=== PATIENT | female | born 1945 | race Caucasian/White ===

== ENCOUNTER 2020-06-16 11:28 | Outpatient (CLI) | payer MEDICARE, BC, SELFPAY ==
--- NOTE | ~2020-06-16 | XR_ITS ---
XR cervical spine 4-5V DATE: 06/16/2020 11:58 INDICATION: Neck pain TECHNIQUE: AP, open-mouth, lateral and bilateral oblique views COMPARISON: None FINDINGS: C1 and C2 are normally aligned and the odontoid process is intact. There is straightening of the cervical spine. No fracture or dislocation or locked facet is evident. There is moderate degenerative disc disease at C3-4. There is moderately severe degenerative disc disease at C4-5, with minimal retrolisthesis. Moderately severe degenerative disc disease at C5-6. Moderate degenerative disc disease at C6-7. There is uncovertebral joint spurring, particularly on the left at C3-4, bilaterally at C4-5 and C5-6 there is corresponding mild anterior encroachment upon the left C4, C5, C6 and C7 and right C5 and C 6 neural foramina in particular. No prevertebral soft tissue swelling. Left-sided pacemaker device IMPRESSION: Mild straightening Extensive degenerative changes Reviewed, dictated and finalized at location A. L WORD PROCESSOR
== END 2020-06-16 11:29 | disposition home or self-care (01) ==
PROVIDERS: PCP Family Medicine; Visit Provider Family Medicine
DX: M54.2 Cervicalgia (principal)
CPT/HCPCS: 72050

== ENCOUNTER → 2021-04-09 13:33 | Outpatient (CLI) | payer MEDICARE, BC, SELFPAY ==
--- NOTE | ~2021-04-09 | XR_ITS ---
EXAMINATION: XR knee RT min 4V DATE: 04/09/2021 15:19 INDICATION: Unspecified osteoarthritis, unspecified site. TECHNIQUE: 4 views of right knee including standing views were obtained. COMPARISON: None. FINDINGS: There is varus angulation at the knee. No fracture. There is severe osteoarthritis of media l compartment and mild osteoarthritis of lateral and patellofemoral compartments. There is a small kn ee joint effusion. IMPRESSION: 1. Severe right knee osteoarthritis. 2. Small right knee joint effusion. Reviewed, dictated and finalized at location A.
--- NOTE | ~2021-04-09 | XR_ITS ---
EXAMINATION: XR knee LT min 4V DATE: 04/09/2021 15:19 INDICATION: Unspecified osteoarthritis, unspecified site. TECHNIQUE: 4 views of left knee including standing views were obtained. COMPARISON: Left knee radiographs 10/12/2007 FINDINGS: Bone alignment is normal. No fracture. There is severe osteoarthritis of medial compartment and mild osteoarthritis of lateral and patellofemoral compartments. No knee joint effusion. IMPRESSION: 1. Severe left knee osteoarthritis. Reviewed, dictated and finalized at location A.
== END ==
PROVIDERS: PCP Family Medicine; Visit Provider Family Medicine
DX: M17.0 Bilateral primary osteoarthritis of knee (principal)
CPT/HCPCS: 73564

== ENCOUNTER 2021-06-30 09:07 | Outpatient (CLI) | payer MEDICARE, BC, SELFPAY ==
--- NOTE | ~2021-06-30 | XR_ITS ---
EXAMINATION: XR shoulder LT min 2V DATE: 06/30/2021 09:46 INDICATION: Left shoulder pain. TECHNIQUE: 5 views of left shoulder were obtained. COMPARISON: None. FINDINGS: Bone alignment is normal. No fracture. There is mild osteoarthritis of glenohumeral joint a nd moderate osteoarthritis of acromioclavicular joint. A left chest pacer is noted. IMPRESSION: 1. Polyarticular osteoarthritis. Reviewed, dictated and finalized at location B. E CLERK
== END 2021-06-30 09:08 | disposition home or self-care (01) ==
PROVIDERS: PCP Family Medicine; Visit Provider Family Medicine
DX: M19.012 Primary osteoarthritis, left shoulder (principal)
CPT/HCPCS: 73030

== ENCOUNTER 2021-11-05 01:54 | Day surgery (SDC) | payer MEDICARE, BC, SELFPAY ==
[2021-10-26 13:44] VITALS: BMI 30.9
--- NOTE | 2021-11-05 10:37 | WPDANESEPPF ---
Anes - Initial Pre Proc Eval Procedure: Operation Date: 11/05/21 12:30 Proposed Procedures p Colonoscopy - Vlad Simons MD Date/Time: 11/05/21 10:37 Surgeon: Vlad Simons MD Pre Op Diagnosis: positive cologuard Patient Data Age: 75 Gender: F Height: 1.68 m Weight: 87 kg Allergies Allergy/AdvReac Type Severity Reaction Status Date / Time latex Allergy Unknown Unknown Verified 11/05/21 11:10 lisinopril Allergy Unknown Cough Verified 11/05/21 11:10 mannitol [Reclast] Allergy Unknown Nausea Verified 11/05/21 11:10 Sulfa (Sulfonamide Allergy Unknown Unknown Verified 11/05/21 11:10 Antibiotics) sulfamethoxazole [Septra] Allergy Unknown Skin Verified 11/05/21 11:10 Reaction trimethoprim [Septra] Allergy Unknown Skin Verified 11/05/21 11:10 Reaction water for injection,sterile Allergy Unknown Nausea Verified 11/05/21 11:10 [Reclast] zoledronic acid [Reclast] Allergy Unknown Nausea Verified 11/05/21 11:10 diclofenac AdvReac Intermediate gi upset, Verified 11/05/21 11:10 diarrhea, and intolerance Home Medications Medication Instructions Recorded Confirmed Type aspirin 81 mg tablet,delayed 81 mg PO DAILY 06/14/19 10/26/21 History release hydrochlorothiazide 25 mg tablet 25 mg PO DAILY 06/14/19 10/26/21 History magnesium 250 mg tablet 250 mg PO DAILY 06/14/19 10/26/21 History potassium chloride 10 mEq 20 meq PO DAILY cap 11/25/19 10/26/21 History capsule,extended release losartan 25 mg tablet See Rx Instructions .ROUTE 05/28/21 10/26/21 History .COMPLEX tablet levothyroxine 50 mcg tablet See Rx Instructions .ROUTE 06/24/21 10/26/21 Rx .COMPLEX #90 tablet amlodipine 5 mg tablet See Rx Instructions .ROUTE 08/23/21 10/26/21 Rx .COMPLEX #30 tablet Patient hx anesthesia problems: none Family hx anesthesia problems: none Results Review: All pre-operative results and documents have been reviewed as part of the pre-operative evaluation. [facility] Past Medical History Medical History (Updated 11/05/21 @ 10:38 by Sancho Hassan MD) Cardiac pacemaker Cholecystectomy planned Colonoscopy planned (~08/2014) Essential (primary) hypertension Hypothyroidism (acquired) Obstructive sleep apnea (adult) (pediatric) MARLEN on CPAP Presence of permanent cardiac pacemaker Unspecified atrial fibrillation Upper respiratory infection Surgical History Surgical History (Reviewed 09/14/21 @ 10:41 by Jessica Duckworth [facility]) H/O cardiac radiofrequency ablation H/O: hysterectomy (~1998) Family History Family History Mother Family history of malignant neoplasm Father Diabetes mellitus Hypertension Grandparent Cerebrovascular accident Other Carcinoma of colon Family history of kidney disease Family history of malignant neoplasm of breast in first degree relative Family history of malignant neoplasm of gastrointestinal tract Family history of thyroid disease Social History Social History (Updated 09/14/21 @ 10:41 by Jessica Duckworth CMA) Second hand tobacco smoke exposure: No Alcohol intake: current Alcohol use details: 1-2 drinks every few months Living arrangements: with family Spiritual care concerns: No Anes - Eval Final PreProcedure Day of Procedure 11/05/21 10:37 Patient weight: obese Heart: regular rate and rhythm Lungs: clear to auscultation and normal air movement Airway: Mallampati scale class II Neurological: alert and oriented Last oral intake: >/= 8 hours ASA classification: III Emergent: no Anesthetic plan: proceed Anesthesia type and monitoring: general GIVS Results Review: All pre-operative results and documents have been reviewed as part of the pre-operative evaluation. Informed Consent: The patient's anesthetic plan and its attendant risks and benefits were discussed with the patient/family/POA. Questions were solicited and answers provided to the satisfaction of t
[2021-11-05 11:11] VITALS: BP 156/76; PULSE 83; RESP 18; TEMP 36.2; O2SAT 100
[2021-11-05] MEDS: LACTATED RINGERS 1,000 ML 150 ML IV CONT (11:18)
--- NOTE | 2021-11-05 11:42 | WPDGICN ---
Assessment and Plan Assessment and plan (1) Positive colorectal cancer screening using Cologuard test: Code(s): R19.5 - Other fecal abnormalities Status: Acute Assessment and Plan: Patient with positive Cologuard test. For this reason screening colonoscopy will be performed. This report follows separately. GI Consult Note Consult date/time: 11/05/21 11:42 HPI: Esther Goins is a 75 year old female Presents for screening colonoscopy. Patient recently found to have positive Cologuard test. Her current weight appetite bowel movements are normal. She denies abdominal pain. She has had no bleeding. Family history is noncontributory. Patient's last colonoscopy 2014 was unremarkable. She presents today for neoplasia screening. Review of Systems Review of Systems: All systems reviewed & are unremarkable except as noted in HPI and below PMFSH Past Medical History Medical History (Updated 11/05/21 @ 11:43 by Vlad Simons MD) Cardiac pacemaker Cholecystectomy planned Colonoscopy planned (~08/2014) Essential (primary) hypertension Hypothyroidism (acquired) Obstructive sleep apnea (adult) (pediatric) MARLEN on CPAP Presence of permanent cardiac pacemaker Unspecified atrial fibrillation Upper respiratory infection Surgical History Surgical History H/O cardiac radiofrequency ablation H/O: hysterectomy (~1998) Family History Family History Mother Family history of malignant neoplasm Father Diabetes mellitus Hypertension Grandparent Cerebrovascular accident Other Carcinoma of colon Family history of kidney disease Family history of malignant neoplasm of breast in first degree relative Family history of malignant neoplasm of gastrointestinal tract Family history of thyroid disease Social History Social History (Updated 09/14/21 @ 10:41 by Jessica Duckworth CMA) Second hand tobacco smoke exposure: No Alcohol intake: current Alcohol use details: 1-2 drinks every few months Living arrangements: with family Spiritual care concerns: No Meds Home Medications and Allergies Home Medications Medication Instructions Recorded Confirmed Type aspirin 81 mg tablet,delayed 81 mg PO DAILY 06/14/19 10/26/21 History release hydrochlorothiazide 25 mg tablet 25 mg PO DAILY 06/14/19 10/26/21 History magnesium 250 mg tablet 250 mg PO DAILY 06/14/19 10/26/21 History potassium chloride 10 mEq 20 meq PO DAILY cap 11/25/19 10/26/21 History capsule,extended release losartan 25 mg tablet See Rx Instructions .ROUTE 05/28/21 10/26/21 History .COMPLEX tablet levothyroxine 50 mcg tablet See Rx Instructions .ROUTE 06/24/21 10/26/21 Rx .COMPLEX #90 tablet amlodipine 5 mg tablet See Rx Instructions .ROUTE 08/23/21 10/26/21 Rx .COMPLEX #30 tablet Allergies Allergy/AdvReac Type Severity Reaction Status Date / Time latex Allergy Unknown Unknown Verified 11/05/21 11:10 lisinopril Allergy Unknown Cough Verified 11/05/21 11:10 mannitol [Reclast] Allergy Unknown Nausea Verified 11/05/21 11:10 Sulfa (Sulfonamide Allergy Unknown Unknown Verified 11/05/21 11:10 Antibiotics) sulfamethoxazole [Septra] Allergy Unknown Skin Verified 11/05/21 11:10 Reaction trimethoprim [Septra] Allergy Unknown Skin Verified 11/05/21 11:10 Reaction water for injection,sterile Allergy Unknown Nausea Verified 11/05/21 11:10 [Reclast] zoledronic acid [Reclast] Allergy Unknown Nausea Verified 11/05/21 11:10 diclofenac AdvReac Intermediate gi upset, Verified 11/05/21 11:10 diarrhea, and intolerance Vital Signs Vital Signs - 24 hr 11/05/21 11:11 Temperature 97.1 F L Pulse Rate 83 Respiratory Rate 18 Blood Pressure 156/76 H Pulse Oximetry 100 Exam Narrative: Physical exam reveals patient to be alert. Vital signs stable. HEENT exam is unr
[2021-11-05 12:44] VITALS: BP 125/61; PULSE 68; RESP 22; O2SAT 100
[2021-11-05 12:54] VITALS: BP 137/61; PULSE 70; RESP 20; O2SAT 100
[2021-11-05 13:04] VITALS: BP 145/61; PULSE 60; RESP 20; O2SAT 100
== END 2021-11-05 13:15 | disposition home or self-care (01) ==
PROVIDERS: PCP Family Medicine; Visit Provider Internal Medicine Gastroenterology
PROC: 0DJD8ZZ Inspection of Lower Intestinal Tract, Via Natural or Artificial Opening Endoscopic (ICD-10-PCS; CPT 45378; principal; 2021-11-05 12:30)
DX: R19.5 Other fecal abnormalities (principal); K64.8 Other hemorrhoids; K57.30 Diverticulosis of large intestine without perforation or abscess without bleeding; I10 Essential (primary) hypertension; E03.9 Hypothyroidism, unspecified; I48.91 Unspecified atrial fibrillation; G47.33 Obstructive sleep apnea (adult) (pediatric); Z95.0 Presence of cardiac pacemaker; Z79.82 Long term (current) use of aspirin; E66.9 Obesity, unspecified; Z68.30 Body mass index [BMI] 30.0-30.9, adult
CPT/HCPCS: 45378; J2001; J2704; J7120

== ENCOUNTER → 2021-12-09 12:24 | Outpatient (CLI) | payer MEDICARE, BC, SELFPAY ==
--- NOTE | ~2021-12-09 | DEXA_ITS ---
Bone Density Report Name: YAZ CESPEDES Age: 76 Sex: Female Ethnicity: White Date of : 1945 Indication: hyperparathyroidism; height loss; prior fracture; hysterectomy; postmenopausal Referring Provider: EDWIN BADILLO Study: Bone densitometry was performed. Exam Date: December 09, 2021 Accession number: [id number] Bone Density: Region BMD T-score Z-score Classification AP Spine (L1-L4) 0.795 -2.3 0.2 Osteopenia Femoral Neck (Left) 0.633 -1.9 0.2 Osteopenia Total Hip (Left) 0.789 -1.3 0.6 Osteopenia Femoral Neck (Right) 0.650 -1.8 0.3 Osteopenia Total Hip (Right) 0.757 -1.5 0.3 Osteopenia Total Hip Mean 0.773 -1.4 0.5 Osteopenia World Health Organization criteria for BMD impression classify patients as: Normal (T-score at or above -1.0), Osteopenia (T-score between -1.0 and -2.5), or Osteoporosis (T-score at or below -2.5). 10-year Fracture Risk(1): Major Osteoporotic Fracture 19% Hip Fracture 4.3% Reported Risk Factors: [place] (), Neck BMD=0.633, BMI=33.3, previous fracture (1) FRAX(R) Version 3.08. Fracture probability calculated for an untreated patient. Fracture probability may be lower if the patient has received treatment. Clinical Information Provided by Patient: Has had a low trauma fracture Has used the following medications: Vitamin D, Calcium Has the following medical conditions: Hyperparathyroidism, Hysterectomy Patient maximum height was 66 Menopause Age: 50 No regular weight bearing exercise Does not regularly consume dairy products Drinks caffeinated beverages Onset of menses at age 16 Number of children 2 Impression: The patient has low bone mass, based on the Total Spine T-score. The patient has an estimated ten-year risk of hip fracture of 4.3% and an estimated ten-year risk of major fracture of 19%, based on the WHO FRAX algorithm. The patient has risk factors, including: previous fracture. Discussion: BONE DENSITY IS LOW AT ONE OR MORE SKELETAL SITES. THE PATIENT'S BMD AND CLINICAL RISK FACTORS CONTRIBUTE TO THIS PATIENT'S INCREASED RISK OF FRACTURE. This patient's lowest T-score is low at one or more skeletal sites. It meets the World Health Organization's (WHO) criteria for ?low bone mass? (T-score between -1.0 and -2.5). The patient's 10-year risk of hip fracture as calculated by FRAX exceeds the threshold where pharmacological therapy is recommended by the National Osteoporosis Foundation (NOF). However, all treatment decisions require clinical judgment and consideration of individual patient factors, including patient preferences, comorbidities, previous drug use, risk factors not captured in the FRAX model (e.g., frailty, falls, vitamin D deficiency, increased bone turnover, interval significant decline in bone density) and possible under or ove
== END ==
PROVIDERS: PCP Family Medicine; Visit Provider Family Medicine
DX: Z78.0 Asymptomatic menopausal state (principal); M85.88 Other specified disorders of bone density and structure, other site; M85.852 Other specified disorders of bone density and structure, left thigh; M85.851 Other specified disorders of bone density and structure, right thigh
CPT/HCPCS: 77080

== ENCOUNTER 2021-12-27 15:09 | Outpatient (CLI) | payer MEDICARE, BC, SELFPAY ==
--- NOTE | ~2021-12-27 | US_ITS ---
EXAMINATION:US venous doppler LE LT INDICATION:Left leg pain and swelling TECHNIQUE: Multiple grayscale, color flow and Doppler images of the left lower extremity deep venous systems were obtained and reviewed. COMPARISON:Ultrasound dated 06/04/2011 FINDINGS: The common femoral, superficial femoral and popliteal veins demonstrate normal respiratory variation, augmentation and compressibility. Color flow is also seen within the peroneal, greater sa phenous and profunda veins. There is deep venous thrombosis of the distal aspect of the posterior tib ial vein. IMPRESSION: 1: Deep venous thrombosis in the distal aspect of the left posterior tibial vein. Patient will be held in radiology department until the referring physician is contacted by our office staff. Reviewed, dictated and finalized at location A. IMPRESSION: 1: Deep venous thrombosis in the distal aspect of the left posterior tibial vei n. Patient will be held in radiology department until the referring physician is c ontacted by our office staff.
== END 2021-12-27 15:10 | disposition home or self-care (01) ==
PROVIDERS: PCP Family Medicine; Visit Provider Family Medicine
DX: M79.605 Pain in left leg (principal); I82.442 Acute embolism and thrombosis of left tibial vein
CPT/HCPCS: 93971

== ENCOUNTER 2022-09-09 10:11 | Outpatient (CLI) | payer MEDICARE, BC, SELFPAY ==
--- NOTE | ~2022-09-09 | US_ITS ---
EXAMINATION: US venous doppler [facility] DATE: 09/09/2022 11:08 INDICATION: Left leg pain TECHNIQUE: Grayscale ultrasound images without and with compression and Doppler ultrasound images of the left lower extremity veins were obtained. COMPARISON: None. FINDINGS: The visualized portions of left common femoral vein, profunda (deep) femoral vein, femoral vein, popl iteal vein, peroneal veins, posterior tibial veins, gastrocnemius vein and greater saphenous vein out flow are patent. IMPRESSION: 1. No deep venous thrombosis in the left lower limb. Reviewed, dictated and finalized at location A. RVISOR STAVE FINISHING
== END 2022-09-09 10:12 | disposition home or self-care (01) ==
PROVIDERS: PCP Emergency Medicine; Visit Provider Emergency Medicine
DX: M79.605 Pain in left leg (principal)
CPT/HCPCS: 93971

== ENCOUNTER → 2022-10-25 10:40 | Outpatient (CLI) | payer MEDICARE, BC, SELFPAY ==
--- NOTE | ~2022-10-25 | US_ITS ---
Thyroid ultrasound. Clinical History: Nontoxic thyroid nodule Findings: Real-time sonography of the thyroid gland was performed. The right lobe measures 5.3 x 1.8 1.2 cm. The left lobe measures 8.2 x 4.3 x 6.4 cm. Questionable subtle solid nodule the right midpole measuring 1.2 x 1.0 x 0.8 cm. There is suggestion of a large solid nodule at the left midpole measuring 3.4 x 4.7 x 2.9 cm. Impression: Marked asymmetric enlargement of the left thyroid lobe, suggestive of multinodular goiter. Probable l arge 4.7 cm solid nodule at the left midpole. FNA advised for tissue analysis. Additional smaller hypoechoic nodule in the right thyroid lobe. Annual follow-up for this nodule is a dvised. Reviewed, dictated and finalized at location M. Impression: Marked asymmetric enlargement of the left thyroid lobe, suggestive of multinodu lar goiter. Probable large 4.7 cm solid nodule at the left midpole. FNA advised for tissue analysis. Additional smaller hypoechoic nodule in the right thyroid lobe. Annual follow-u p for this nodule is advised.
== END ==
PROVIDERS: PCP Emergency Medicine; Visit Provider Emergency Medicine
DX: E04.1 Nontoxic single thyroid nodule (principal)
CPT/HCPCS: 76536

== ENCOUNTER 2023-05-18 13:56 | Emergency (ER) | payer MEDICARE, BC, SELFPAY ==
[2023-05-18] VITALS (10 sets, daily range): BP systolic 129–163; BP diastolic 52–87; PULSE 69; RESP 14–16; TEMP 36.6; O2SAT 95–100
--- NOTE | ~2023-05-18 | CT_ITS ---
EXAMINATION: CT BRAIN W/O DATE: 05/18/2023 16:19 INDICATION: Head injury TECHNIQUE: Computed tomography (CT) of the head was performed without intravenous contrast. The dose- length product was 605.33 mGy-cm. Automated exposure control and iterative reconstruction technique w ere employed. COMPARISON: No prior studies for comparison. FINDINGS: Normal brain parenchymal volume for age. Normal tuttle-white differentiation. No acute intrac ranial hemorrhage, infarction, mass or mass effect. There is intracranial atherosclerosis. No ventriculomegaly or midline shift. Midline sagittal images demonstrate a normal corpus callosum, c raniovertebral junction and sella turcica. Basilar cisterns are patent. Paranasal sinuses and mastoids are pneumatized. No depressed skull fractures. IMPRESSION: 1. No acute intracranial abnormality. Reviewed, dictated and finalized at location A.
--- NOTE | ~2023-05-18 | CT_ITS ---
EXAMINATION: CT thoracic lumbar wo con DATE: 05/18/2023 16:19 INDICATION: Back pain. Fall. TECHNIQUE: Computed tomography (CT) of the thoracic and lumbar spine was performed without intravenou s contrast. Automated exposure control and iterative reconstruction technique were employed. The dose -length product was 1607.28 mGy-cm. COMPARISON: None FINDINGS: CT THORACIC SPINE: There is a left chest wall pacer with leads in the right atrium and right ventricl e. There are changes of cholecystectomy. There is mild chronic lung disease. There is 9 degrees dextr ocurvature of thoracic spine. Vertebral body heights are normal. Intervertebral disc heights are norm al. There are bridging endplate osteophytes from T4 to T11, consistent with diffuse idiopathic skelet al hyperostosis (DISH). There is multilevel mild to moderate facet joint osteoarthritis. There is mil d right neural foraminal stenosis at T2-T3, T3-T4, T5-T6, and T6-T7. No central canal stenosis. CT LUMBAR SPINE: There is 18 mm mass in right adrenal gland measuring low-attenuation, consistent wit h an adenoma. Bone alignment is normal. Vertebral body heights are normal. There is mildly decreased disc height at L3-L4, L4-L5, and L5-S1. The following disc levels are specifically discussed: L1-L2: The disc does not extend beyond the endplate margin. There is mild bilateral facet joint osteo arthritis. There is no neural foraminal stenosis. There is no central canal stenosis. L2-L3: The disc does not extend beyond the endplate margin. There is mild bilateral facet joint osteo arthritis. There is no neural foraminal stenosis. There is no central canal stenosis. L3-L4: The disc is bulging. There is severe bilateral facet joint osteoarthritis. There is mild bilat eral neural foraminal stenosis. There is mild central canal stenosis. L4-L5: The disc is bulging. There is severe bilateral facet joint osteoarthritis. There is mild bilat eral neural foraminal stenosis. There is mild central canal stenosis. L5-S1: The disc is bulging. There is severe bilateral facet joint osteoarthritis. There is mild bilat eral neural foraminal stenosis. There is mild central canal stenosis. IMPRESSION: 1. No fracture. 2. Mild thoracic and lumbar spondylosis. 3. Thoracic DISH. Reviewed, dictated and finalized at location A.
--- NOTE | ~2023-05-18 | CT_ITS ---
EXAMINATION: CT cervical spine wo con DATE: 05/18/2023 16:19 INDICATION: Neck pain. Fall. TECHNIQUE: Computed tomography (CT) of the cervical spine was performed without intravenous contrast. Automated exposure control and iterative reconstruction technique were employed. The dose-length pro duct was 348.15 mGy-cm. COMPARISON: None FINDINGS: There is 2 mm anterolisthesis of C3 on C4. Vertebral body heights are normal. There is aquiles rely decreased disc height from C3-C4 through C6-C7. C1 ring is ununited posteriorly, a normal varian t. The following disc levels are specifically discussed: C2-C3: There is mild right uncovertebral joint osteoarthritis. There is moderate bilateral facet join t osteoarthritis. There is no neural foraminal stenosis. There is no central canal stenosis. C3-C4: There is mild right uncovertebral joint osteoarthritis. There is ankylosis of left uncovertebr al joint with moderate hypertrophy. There is severe right facet joint osteoarthritis. There is ankylo sis of left facet joint with severe hypertrophy. There is mild left neural foraminal stenosis. There is mild central canal stenosis. C4-C5: There is severe bilateral uncovertebral joint osteoarthritis. There is mild bilateral facet julinaa int osteoarthritis. There is mild bilateral neural foraminal stenosis. There is mild central canal st enosis. C5-C6: There is severe bilateral uncovertebral joint osteoarthritis. There is mild left facet joint o steoarthritis. There is mild bilateral neural foraminal stenosis. There is mild central canal stenosi s. C6-C7: There is mild bilateral uncovertebral joint osteoarthritis. There is no facet joint osteoarthr itis. There is mild left neural foraminal stenosis. There is mild central canal stenosis. C7-T1: There is no uncovertebral joint osteoarthritis. There is severe right and moderate left facet joint osteoarthritis. There is mild bilateral neural foraminal stenosis. There is no central canal st enosis. IMPRESSION: 1. No fracture. 2. Severe cervical spondylosis. Reviewed, dictated and finalized at location A.
--- NOTE | 2023-05-18 15:53 | PC.NURSE ---
EDP at bedside to assess pt.
--- NOTE | 2023-05-18 16:15 | PC.NURSE ---
Patient off unit to radiology.
--- NOTE | 2023-05-18 16:15 | ED.FALL ---
HPI - Fall General Chief Complaint: Fall Stated Complaint: fall, struck head Time Seen by Provider: 05/18/23 15:42 Source: patient, EMS and RN notes reviewed Mode of arrival: ambulatory Limitations: no limitations History of Present Illness HPI Narrative: This is a 77 year old female who presents for evaluation of neck pain, back pain s/p fall. Patient states just prior to arrival she was trying to catch her who was fall. This caused her to fall backwards down steps onto concrete. She reports she feel flat on her back and she also hit her head. She denies headache or LOC. She reports neck stiffness and lower back pain. She has bruising to her left flank from this fall. She states initially she has shortness of breath but this has improved. She takes aspirin 81 mg along with other medications. Related Data Home Medications Medication Instructions Recorded Confirmed hydrochlorothiazide 25 mg tablet 25 mg PO DAILY 06/14/19 04/26/23 magnesium 250 mg tablet 250 mg PO DAILY 06/14/19 04/26/23 potassium chloride 10 mEq 20 meq PO DAILY 11/25/19 04/26/23 capsule,extended release ascorbic acid (vitamin C) 1,000 mg 1 g PO DAILY 02/10/22 04/26/23 capsule cholecalciferol (vitamin D3) 25 25 mcg PO DAILY 02/10/22 04/26/23 mcg/drop (1,000 unit/drop) oral drops losartan 50 mg tablet 50 mg PO BID 03/21/22 04/26/23 Allergies Allergy/AdvReac Type Severity Reaction Status Date / Time latex Allergy Unknown Unknown Verified 04/26/23 09:15 lisinopril Allergy Unknown Cough Verified 04/26/23 09:15 mannitol [Reclast] Allergy Unknown Nausea Verified 04/26/23 09:15 Sulfa (Sulfonamide Allergy Unknown Unknown Verified 04/26/23 09:15 Antibiotics) sulfamethoxazole [Septra] Allergy Unknown Skin Verified 04/26/23 09:15 Reaction trimethoprim [Septra] Allergy Unknown Skin Verified 04/26/23 09:15 Reaction water for injection,sterile Allergy Unknown Nausea Verified 04/26/23 09:15 [Reclast] zoledronic acid [Reclast] Allergy Unknown Nausea Verified 04/26/23 09:15 diclofenac AdvReac Intermediate gi upset, Verified 04/26/23 09:15 diarrhea, and intolerance Review of Systems Constitutional: Constitutional: Denies weakness Cardiovascular: Cardiovascular: Denies syncope, Denies rapid heart rate, Denies irregular heart rhythm, Denies leg edema and Denies dyspnea Respiratory: Respiratory: Denies chest congestion, Denies hemoptysis, Denies excessive phlegm production and Reports dyspnea Gastrointestinal: Gastrointestinal: Denies abdominal pain, Denies hematochezia, Denies diarrhea and Denies vomiting Genitourinary: Genitourinary: Denies hematuria, Denies dysuria and Reports flank pain Musculoskeletal: Musculoskeletal: Reports back pain, Denies joint swelling, Denies loss of height and Denies muscle weakness Neurologic: Denies syncope, Denies focal weakness and Denies weakness PMFSH Past Medical History Medical History Cardiac pacemaker Cholecystectomy planned Colonoscopy planned (~08/2014) Essential (primary) hypertension Hypothyroidism (acquired) Obstructive sleep apnea (adult) (pediatric) MARLEN on CPAP Presence of permanent cardiac pacemaker Unspecified atrial fibrillation Upper respiratory infection Surgical History Surgical History H/O cardiac radiofrequency ablation H/O partial thyroidectomy H/O: hysterectomy (~1998) Family History Family History Mother Family history of malignant neoplasm Father Diabetes mellitus Hypertension Grandparent Cerebrovascular accident Other Carcinoma of colon Family history of kidney disease Family history of malignant neoplasm of breast in first degree relative Family history of malignant neoplasm of gastrointestinal tract Family history of thyroid disease Social History Social Hi
[2023-05-18 16:45] LABS: Basophils Percent Auto 0.3 % (0.2-1.2); Eosinophils Percent Auto 0.1 % (0-4.4); Hematocrit 41.8 % (37.0-47.0); Hemoglobin 13.9 g/dL (12.0-15.0); Immature Granulocyte Absolute 0.08 K/mm3 (0.00-0.031); Immature Granulocyte Percent A 0.6 % (0-0.5); Lymphocytes Absolute Auto 0.76 K/mm3 (0.9-3.2); Lymphocytes Percent Auto 5.6 % (18.3-44.2); Mean Corpuscular HGB Conc 33.3 g/dl (32-36); Mean Corpuscular Hemoglobin 31.2 pg (26-34); Mean Corpuscular Volume 93.9 fl (80-100); Monocytes Absolute Auto 1.3 K/mm3 (0.1-0.6); Monocytes Percent Auto 9.3 % (2.6-8.5); Neutrophils Absolute Auto 11.4 K/mm3 (1.3-6.7); Neutrophils Percent Auto 84.1 % (45.5-73.1); Platelet Count Result 244 k/mm3 (150-375); Red Blood Count 4.45 M/mm3 (4.2-5.4); Red Cell Distribution Width 13.2 % (11.5-14.5); White Blood Count 13.6 K/mm3 (4.5-10.0)
[2023-05-18 16:56] LABS: Alanine Aminotransferase 27 U/L (6-35); Albumin Level 4.4 g/dL (3.5-5.1); Alkaline Phosphatase 114 U/L (38-126); Anion Gap 5 mmol/L (8-16); Aspartate Amino Transferase 33 U/L (14-36); Bilirubin,Total 0.5 mg/dL (0.2-1.3); Blood Urea Nitrogen 26 mg/dL (7-17); Calcium 9.8 mg/dL (8.4-10.2); Carbon Dioxide 27 mmol/L (22-30); Chloride 104 mmol/L (98-107); Estimated CRCL calculation 47 ml/min; Estimated Glomerular Filt Rate 54; Glucose 102 mg/dL (65-110); Potassium 3.6 mmol/L (3.4-5.0); Sodium 136 mmol/L (137-145)
[2023-05-18 17:01] LABS: Partial Thromboplastin Time 23.5 SECONDS (22.3-36.8); Prothrombin Time 13.2 Seconds (11.1-14.7)
== END 2023-05-18 17:39 | disposition home or self-care (01) ==
PROVIDERS: Emergency Provider General Practice
DX: S09.90XA Unspecified injury of head, initial encounter (principal); S30.0XXA Contusion of lower back and pelvis, initial encounter; S30.1XXA Contusion of abdominal wall, initial encounter; I10 Essential (primary) hypertension; I48.91 Unspecified atrial fibrillation; E89.0 Postprocedural hypothyroidism; G47.33 Obstructive sleep apnea (adult) (pediatric); Z79.82 Long term (current) use of aspirin; Z95.0 Presence of cardiac pacemaker; Z90.710 Acquired absence of both cervix and uterus; M47.812 Spondylosis without myelopathy or radiculopathy, cervical region; M47.816 Spondylosis without myelopathy or radiculopathy, lumbar region; M47.814 Spondylosis without myelopathy or radiculopathy, thoracic region; M48.14 Ankylosing hyperostosis [Forestier], thoracic region; W10.9XXA Fall (on) (from) unspecified stairs and steps, initial encounter
CPT/HCPCS: 36415; 70450; 72125; 72128; 72131; 80053; 85025; 85610; 85730; 99284

== ENCOUNTER 2023-06-26 11:46 | Outpatient (NON) | payer MEDICARE, BC, SELFPAY ==
[2023-06-26 19:34] LABS: Appearance Urine Clear (Clear); Bacteria Urine None Seen /hpf; Bilirubin Urine Negative (Negative); Blood Urine Negative (Negative); Color Urine Yellow (Yellow); Glucose Urine UA Negative (Negative); Ketones Urine Negative (Negative); Leukocyte Esterase Ur 2+ LEU/UL (Negative); Nitrate Urine Negative (Negative); Non Pathogenic Casts 0-2; Protein Urine Negative (Negative); RBC Urine 0-2 /hpf (0-2); Specific Grav Ur 1.021 (1.001-1.035); Squamous Epithelial Cell Urine Occasional /hpf (Few); Urobilinogen Urine 0.2 mg/dL (<2.0); WBC Urine 51-100 /hpf
[2023-06-26 19:42] LABS: Add Urine Microscopic? YES
== END 2023-06-26 11:47 | disposition home or self-care (01) ==
PROVIDERS: PCP Emergency Medicine; Visit Provider Emergency Medicine
DX: R30.0 Dysuria (principal)
CPT/HCPCS: 81001; 87077; 87086; 87186

== ENCOUNTER 2023-07-14 12:36 | Outpatient (NON) | payer MEDICARE, BC, SELFPAY ==
[2023-07-14 19:37] LABS: Appearance Urine Clear (Clear); Bacteria Urine None Seen /hpf; Bilirubin Urine Negative (Negative); Blood Urine Negative (Negative); Color Urine Yellow (Yellow); Glucose Urine UA Negative (Negative); Ketones Urine Negative (Negative); Leukocyte Esterase Ur Trace LEU/UL (Negative); Nitrate Urine Negative (Negative); Non Pathogenic Casts 0-2; Protein Urine Negative (Negative); RBC Urine 0-2 /hpf (0-2); Specific Grav Ur 1.011 (1.001-1.035); Squamous Epithelial Cell Urine None seen /hpf (Few); Urobilinogen Urine 0.2 mg/dL (<2.0); WBC Urine 0-5 /hpf; pH Urine 6.5 (5.0-9.0)
[2023-07-14 19:52] LABS: Add Urine Microscopic? YES
== END 2023-07-14 12:37 | disposition home or self-care (01) ==
LOC: ANHGOSHLAB 12:38
PROVIDERS: PCP Emergency Medicine; Visit Provider Emergency Medicine
DX: N39.0 Urinary tract infection, site not specified (principal)
CPT/HCPCS: 81001

== ENCOUNTER 2025-03-30 12:42 | Emergency (ER) | payer MEDICARE, BC, SELFPAY ==
--- OUTSIDE RECORDS SUMMARY | 2025-03-30 12:44 | XMS_ITS | Encounter Summary ---
Author Organization [facility] Address [address] [place] [address] Phone Care Team Providers Care Electrical Linesworker Name Role Phone Ros Gilliam MD Primary Care Provider [phone] Ros Gilliam MD Primary Care Provider [phone] Unknown, Notinfile Primary Care Provider Unavail able Ros Gilliam MD Primary Care Provider [phone] Unknown, Notinfile Primary Care Provider Unavail able Ros Gilliam MD Primary Care Provider [phone] Carl Kahn MD Primary Care Provider [phone] Juancho Contreras MD Primary Care Provider [phone] Rashmi Li MD Primary Care Provider + Encounter Details Date Type Department Care Team (Late st Contact Info) Description 10/24/2013 Orders Only [facility] Provider, MD Enmanuel [address] [place] [address] Social History Tobacco Use Types Packs/Day Years Used Date Smoking Tobacco: Never Assessed Comments Unknown Sex and Gender Information Value Date Recorded Sex Assigned at Not on file 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 us Historical Provider [facility] Final Result documented in this encounter Visit Diagnoses Not on filedocumented in this encounter Care Teams Electrical Linesworker Relationship Specialty Start Date End Date Ros Gilliam MD [address] [place] [address] PCP - General 10/20/14 01/12/17 Ros Gilliam MD [address] [place] [address] PCP - General 01/13/17 01/13/17 Unknown, Notinfile PCP - General 01/14/17 01/22/17 Ros Gilliam MD [address] [place] [address] PCP - General 01/23/17 03/08/17 Unknown, Notinfile PCP - General 03/09/17 07/12/17 Ros Gilliam MD [address] [place] [address] PCP - General 07/13/17 07/25/22 Carl Kahn MD PCP - General Family Medicine 07/26/22 06/04/24 [place] [address] PCP - General Family Medicine 06/05/24 09/23/24 Rashmi Li MD [address] [place] [address] [address] [place] [address] PCP - General Family Medicine 09/24/24 documented as of this encounter
--- OUTSIDE RECORDS SUMMARY | 2025-03-30 12:44 | XMS_ITS | Encounter Summary ---
Author Organization [facility] Address [address] [place] [address] Phone Care Team Providers Care Custom Miller Name Role Phone Ros Gilliam MD Primary Care Provider [phone] Ros Gilliam MD Primary Care Provider [phone] Unknown, Notinfile Primary Care Provider Unavail able Ros Gilliam MD Primary Care Provider [phone] Unknown, Notinfile Primary Care Provider Unavail able Ros Gilliam MD Primary Care Provider Carl Kahn MD Primary Care Provider [phone] Juancho Contreras MD Primary Care Provider [phone] Rashmi Li MD Primary Care Provider + Encounter Details Date Type Department Care Team (Late st Contact Info) Description 09/19/2012 Orders Only [facility] Provider, MD Enmanuel [address] [place] [address] Social History Tobacco Use Types Packs/Day Years Used Date Smoking Tobacco: Never Assessed Comments Unknown Sex and Gender Information Value Date Recorded Sex Assigned at Not on file 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 us Historical Provider [facility] Final Result documented in this encounter Visit Diagnoses Not on filedocumented in this encounter Care Teams Custom Miller Relationship Specialty Start Date End Date Ros Gilliam MD [address] [place] [address] PCP - General 10/20/14 01/12/17 Ros Gilliam MD [address] [place] [address] PCP - General 01/13/17 01/13/17 Unknown, Notinfile PCP - General 01/14/17 01/22/17 Ros Gilliam MD [address] [place] [address] PCP - General 01/23/17 03/08/17 Unknown, Notinfile PCP - General 03/09/17 07/12/17 Ros Gilliam MD [address] [place] [address] PCP - General 07/13/17 07/25/22 Carl Kahn MD PCP - General Family Medicine 07/26/22 06/04/24 [place] [address] PCP - General Family Medicine 06/05/24 09/23/24 Rashmi Li MD [address] [place] [address] [address] [place] [address] PCP - General Family Medicine 09/24/24 documented as of this encounter
--- OUTSIDE RECORDS SUMMARY | 2025-03-30 12:44 | XMS_ITS | Encounter Summary ---
Author Organization [facility] Address [address] [place] [address] Phone Care Team Providers Care Plater Barrel Name Role Phone Ros Gilliam MD Primary Care Provider [phone] Ros Gilliam MD Primary Care Provider [phone] Unknown, Notinfile Primary Care Provider Unavail able Ros Gilliam MD Primary Care Provider [phone] Unknown, Notinfile Primary Care Provider Unavail able Ros Gilliam MD Primary Care Provider [phone] Carl Kahn MD Primary Care Provider [phone] Juancho Contreras MD Primary Care Provider [phone] Rashmi Li MD Primary Care Provider + Encounter Details Date Type Department Care Team (Late st Contact Info) Description 12/03/2015 Orders Only [facility] Provider, MD Enmanuel [address] [place] [address] Social History Tobacco Use Types Packs/Day Years Used Date Smoking Tobacco: Never Alcohol Use Standard Drinks/Week Comments Yes 0 (1 standard drink = 0.6 oz pur e alcohol) Comments Unknown Sex and Gender Information Value Date Recorded Sex Assigned at Not on file 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 us Historical Provider [facility] Final Result documented in this encounter Visit Diagnoses Not on filedocumented in this encounter Care Teams Plater Barrel Relationship Specialty Start Date End Date Ros Gilliam MD [address] [place] [address] PCP - General 10/20/14 01/12/17 Ros Gilliam MD [address] [place] [address] PCP - General 01/13/17 01/13/17 Unknown, Notinfile PCP - General 01/14/17 01/22/17 Ros Gilliam MD [address] [place] [address] PCP - General 01/23/17 03/08/17 Unknown, Notinfile PCP - General 03/09/17 07/12/17 Ros Gilliam MD [address] [place] [address] PCP - General 07/13/17 07/25/22 Carl Kahn MD PCP - General Family Medicine 07/26/22 06/04/24 [place] [address] PCP - General Family Medicine 06/05/24 09/23/24 Rashmi Li MD [address] [place] [address] [address] [place] [address] PCP - General Family Medicine 09/24/24 documented as of this encounter
--- OUTSIDE RECORDS SUMMARY | 2025-03-30 12:44 | XMS_ITS | Encounter Summary ---
Author Organization [facility] Address [address] [place] [address] Phone Care Team Providers Care Target Aircraft Technician Name Role Phone Ros Gilliam MD Primary Care Provider [phone] Ros Gilliam MD Primary Care Provider [phone] Unknown, Notinfile Primary Care Provider Unavail able Ros Gilliam MD Primary Care Provider [phone] Unknown, Notinfile Primary Care Provider Unavail able Ros Gilliam MD Primary Care Provider [phone] Carl Kahn MD Primary Care Provider [phone] Juancho Contreras MD Primary Care Provider [phone] Rashmi Li MD Primary Care Provider + Encounter Details Date Type Department Care Team (Late st Contact Info) Description 11/06/2014 Orders Only [facility] Provider, MD Enmanuel [address] [place] [address] Social History Tobacco Use Types Packs/Day Years Used Date Smoking Tobacco: Never Alcohol Use Standard Drinks/Week Comments Yes 0 (1 standard drink = 0.6 oz pur e alcohol) Comments Unknown Sex and Gender Information Value Date Recorded Sex Assigned at Not on file 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 us Historical Provider [facility] Final Result documented in this encounter Visit Diagnoses Not on filedocumented in this encounter Care Teams Target Aircraft Technician Relationship Specialty Start Date End Date Ros Gilliam MD [address] [place] [address] PCP - General 10/20/14 01/12/17 Ros Gilliam MD [address] [place] [address] PCP - General 01/13/17 01/13/17 Unknown, Notinfile PCP - General 01/14/17 01/22/17 Ros Gilliam MD [address] [place] [address] PCP - General 01/23/17 03/08/17 Unknown, Notinfile PCP - General 03/09/17 07/12/17 Ros Gilliam MD [address] [place] [address] PCP - General 07/13/17 07/25/22 Carl Kahn MD PCP - General Family Medicine 07/26/22 06/04/24 [place] [address] PCP - General Family Medicine 06/05/24 09/23/24 Rashmi Li MD [address] [place] [address] [address] [place] [address] PCP - General Family Medicine 09/24/24 documented as of this encounter
--- OUTSIDE RECORDS SUMMARY | 2025-03-30 12:44 | XMS_ITS | Encounter Summary ---
Author Organization [facility] Address [address] [place] [address] Phone Care Team Providers Care Community Service Manager Name Role Phone Rashmi Li MD Primary Care Provider + Reason for Referral * Cardiology (Routine) - Authorized Specialty Diagnoses / Procedures Referred By Contac t Referred To Contact Diagnoses PASCUAL (dyspnea on exertion) Pericardial effusion Procedures Transthoracic Echo (TTE) Limited/Followup Oumou Stearns NP [address] [place] [address] Phone: tel: fax: [facility] Referral ID Status Reason Start Date Expiration Date V isits Requested Visits Authorized [id number] Authorized 03/14/2025 04/13/2026 1 1 Encounter Details Date Type Department Care Team (Late st Contact Info) Description 03/14/2025 Results Follow-Up [facility] Cardiology [address] [facility] [address] [place] [address] Oumou tSearns NP [address] [place] [address] Transthoracic Echo (TTE) Complete W Doppler/CF Social History Tobacco Use Types Packs/Day Years Used Date Smoking Tobacco: Never Smokeless Tobacco: Never Alcohol Use Standard Drinks/Week Comments Yes 0 (1 standard drink = 0.6 oz pure alcohol) I will occasionally have a mixed. AUDIT-C Answer Date Recorded Q1: How often do you have a drink containing alc ohol? Monthly or less 10/10/2024 Q2: How many drinks containi ng alcohol do you have on a typical day when you are drinking? 1 or 2 10/10/2024 Q3: How often do you have si x or more drinks on one occasion? Never 10/10/2024 Personal Safety Answer Date Recorded Have you ever been in or are you currently in a harmful physical or emotional relationship or is someone making you feel afraid or unsafe? 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 Gender Identity Female 11/25/2019 12:00 PM CDT Sexual Orientation Straight 11/25/2019 12 :00 PM CDT documented as of this encounter Plan of Treatment Scheduled Orders Name Type Priority Associated Diagnoses Order Schedule Transthoracic Echo (TTE) Limited/Followup Echocardiography Routine PASCUAL (dyspnea on exertion) Pericardial effusion Expected: 06/14/2025, Expires: 06/14/2026 documented as of this encounter Visit Diagnoses Diagnosis PASCUAL (dyspnea on exertion)- Primary Other dyspnea and respiratory abnormality Pericardial effusion Unspecified disease of pericardium documented in this encounter Care Teams Community Service Manager Relationship Specialty Start Date End Date Rashmi Li MD [facility] [address] [address] PCP - General Family Medicine 09/24/24 documented as of this encounter
--- OUTSIDE RECORDS SUMMARY | 2025-03-30 12:44 | XMS_ITS | Encounter Summary ---
Author Organization [facility] Address [address] [place] [address] Phone Care Team Providers Care Operator Weapon Locating Radar Name Role Phone Ros Gilliam MD Primary Care Provider Carl Kahn MD Primary Care Provider [phone] Juancho Contreras MD Primary Care Provider [phone] Rashmi Li MD Primary Care Provider + Encounter Details Date Type Department Care Team (Late st Contact Info) Description 04/30/2020 Telephone [facility] Cardiology [address] [facility] 8th [place] [address] [place] [address] Tone Patel MD [address] [facility] [address] [place] [address] Social History Tobacco Use Types Packs/Day Years Used Date Smoking Tobacco: Never Smokeless Tobacco: Never Alcohol Use Standard Drinks/Week Comments Yes 0 (1 standard drink = 0.6 oz pur e alcohol) Comments Unknown Sex and Gender Information Value Date Recorded Sex Assigned at Not on file 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 Gender Identity Female 11/25/2019 12:00 PM CDT Sexual Orientation Straight 11/25/2019 12 :00 PM CDT documented as of this encounter Plan of Treatment Not on file documented as of this encounter Visit Diagnoses Not on filedocumented in this encounter Care Teams Operator Weapon Locating Radar Relationship Specialty Start Date End Date Ros Gilliam MD [address] [place] [address] PCP - General 07/13/17 07/25/22 Carl Kahn MD [address] [place] [address] PCP - General Family Medicine 07/26/22 06/04/24 Juancho Contreras MD [address] [place] [address] PCP - General Family Medicine 06/05/24 09/23/24 Rashmi Li MD [address] [place] [address] [place] [address] PCP - General Family Medicine 09/24/24 documented as of this encounter
--- OUTSIDE RECORDS SUMMARY | 2025-03-30 12:44 | XMS_ITS | Encounter Summary ---
Author Organization [facility] Address [address] [place] [address] Phone Care Team Providers Care Acid Recovery Operator Name Role Phone Ros Gilliam MD Primary Care Provider [phone] Carl Kahn MD Primary Care Provider [phone] Juancho Contreras MD Primary Care Provider [phone] Rashmi Li MD Primary Care Provider + Encounter Details Date Type Department Care Team (Latest Contact Info) Description 11/20/2020 Orders Only [facility] Same, Wilmer Witt MD [address] [place], [place] [id number] Social History Tobacco Use Types Packs/Day Years Used Date Smoking Tobacco: Never Smokeless Tobacco: Never Alcohol Use Standard Drinks/Week Comments Yes 0 (1 standard drink = 0.6 oz pure alcohol) I will occasionally have a mixed. 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 Gender Identity Female 11/25/2019 12:00 PM CDT Sexual Orientation Straight 11/25/2019 12 :00 PM CDT documented as of this encounter Plan of Treatment Not on file documented as of this encounter Procedures Procedure Name Priority Date/Time Associated Diagnosis Comments SCAN - LABS 11/20/2020 documented in this encounter Results * SCAN - LABS (11/20/2020) us Wilmer Witt Same, MD Final Re sult documented in this encounter Visit Diagnoses Not on filedocumented in this encounter Care Teams Acid Recovery Operator Relationship Specialty Start Date End Date Ros Gilliam MD [address] [place] [address] PCP - General 07/13/17 07/25/22 Carl Kahn MD [address] [place] [address] PCP - General Family Medicine 07/26/22 06/04/24 Juancho Contreras MD [address] [place] [address] PCP - General Family Medicine 06/05/24 09/23/24 Rashmi Li MD [address] [place] [address] [place] [address] PCP - General Family Medicine 09/24/24 documented as of this encounter
--- OUTSIDE RECORDS SUMMARY | 2025-03-30 12:44 | XMS_ITS | Encounter Summary ---
Author Organization [facility] Address [address] [place] [address] Phone Care Team Providers Care Etl Informatica Developer Name Role Phone Ros Gilliam MD Primary Care Provider [phone] Ros Gilliam MD Primary Care Provider [phone] Unknown, Notinfile Primary Care Provider Unavail able Ros Gilliam MD Primary Care Provider [phone] Unknown, Notinfile Primary Care Provider Unavail able Ros Gilliam MD Primary Care Provider [phone] Carl Kahn MD Primary Care Provider [phone] Juancho Contreras MD Primary Care Provider [phone] Rashmi Li MD Primary Care Provider + Encounter Details Date Type Department Care Team (Late st Contact Info) Description 10/20/2016 Orders Only [facility] Provider, MD Enmanuel [address] [place] [address] Social History Tobacco Use Types Packs/Day Years Used Date Smoking Tobacco: Never Alcohol Use Standard Drinks/Week Comments Yes 0 (1 standard drink = 0.6 oz pur e alcohol) Comments Unknown Sex and Gender Information Value Date Recorded Sex Assigned at Not on file 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 us Historical Provider [facility] Final Result documented in this encounter Visit Diagnoses Not on filedocumented in this encounter Care Teams Etl Informatica Developer Relationship Specialty Start Date End Date Ros Gilliam MD [address] [place] [address] PCP - General 10/20/14 01/12/17 Ros Gilliam MD [address] [place] [address] PCP - General 01/13/17 01/13/17 Unknown, Notinfile PCP - General 01/14/17 01/22/17 Ros Gilliam MD [address] [place] [address] PCP - General 01/23/17 03/08/17 Unknown, Notinfile PCP - General 03/09/17 07/12/17 Ros Gilliam MD [address] [place] [address] PCP - General 07/13/17 07/25/22 Carl Kahn MD PCP - General Family Medicine 07/26/22 06/04/24 [place] [address] PCP - General Family Medicine 06/05/24 09/23/24 Rashmi Li MD [address] [place] [address] [address] [place] [address] PCP - General Family Medicine 09/24/24 documented as of this encounter
--- OUTSIDE RECORDS SUMMARY | 2025-03-30 12:44 | XMS_ITS | Clinical Summary ---
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 Name Role Phone Rashmi Li MD Primary Care Provider + Allergies Active Allergy Reactions Criticality Noted Date Comments Andrea Inhibitors Cough Low Latex Itching Low 03/20/2023 Lisinopril Cough Low Sulfa (Sulfonamide Antibiotics) Rash Medium Medications MAGNESIUM ORALIndications :supplement Take 250 mg by mouth nightly Active calcium carbonate/vitam in D3 (CALCIUM 600 + D,3, ORAL)Indication s:supplement Take 1 tablet/capsu le by mouth 2 (two) times a day Active amLODIPine (NORVASC) 5 mg tabletIndicatio ns:hypertension Take 1 tablet (5 mg total) by mouth nightly 10/11/19 24 Active losartan (COZAAR) 50 mg tablet Take 1 tablet (50 mg total) by mouth 2 (two) times a day 180 tablet 3 08/13/19 25 026 Active cholecalciferol (Vitamin D3) 1,000 unit capsuleIndicati ons:Vitamin D Deficiency Take 1 capsule (1,000 Units total) by mouth 2 (two) times a day Active acetaminophen 500 mg capsuleIndicati ons:Pain Take 2 capsules (1,000 mg total) by mouth every 8 (eight) hours 90 tablet 10/11/19 25 Active chlorthalidone (HYGROTON) 25 mg tablet Take 1 tablet (25 mg total) by mouth daily 90 tablet 3 07/28/20 25 Active levothyroxine (SYNTHROID) 50 mcg tabletIndicatio ns: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 12 tablet/caps ule 03/20/20 25 Active levothyroxine (SYNTHROID) 50 mcg tablet Take 1 tablet (50 mcg total) by mouth daily 30 tablet 11 06/14/20 24 025 Discontinued chlorthalidone (HYGROTON) 25 mg tablet TAKE 1 TABLET(25 MG) BY MOUTH DAILY 60 tablet 6 02/25/20 25 025 Discontinued(Re order) Hospital, Clinic, or Other Facility Administered Medication Ordered Dose Route Frequency Start Date End Date Status perflutren protein-a (OPTISON) 3 mL in sodium chloride 0.9% 8 mL syringe 1 - 8 mL IV Once in imaging 03/13/2025 03/13/2025 Ended Active Problems Problem Noted Date Diagnosed Date Primary osteoarthritis of left knee 05/08/2024 Primary osteoarthritis of right knee 05/08/2024 Thyromegaly 03/20/2023 SOB (shortness of breath) on exertion 02/21/2023 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 Mixed hyperlipidemia 10/08/2021 Class 1 obesity due to exces s calories with serious comorbidity and body mass index (BMI) of 32.0 to 32.9 in adult 12/07/2020 Presence of permanent cardiac pacemaker 12/06/19 SSS (sick sinus syndrome) 11/25/2019 Atrial tachycardia 11/06/2018 PAF (paroxysmal atrial fibrillation) 11/06/2018 Redness 03/20/2018 Overview (03/20/2018): Above pacer site Persistent disorder of initiating or maintaining sleep 04/28/2017 Assessment & Plan (04/27/2018 4:29 PM CDT): Reviewed good sleep-wake habits, if she is unable fall asleep in 20 min she should get out of bed and sit in the dark until she feels tired and then return to bed. She should eliminate any caffeine after noon time. Assessment & Plan (04/28/2017 4:33 PM CDT): She will continue with good sleep hygiene habits. Essential hypertension 04/28/2016 Overview (11/11/2016): Essential hypertension Obstructive sleep apnea syndrome 10/20/2014 Overview (11/11/2016): Obstructive sleep apnea Assessment & Plan (04/26/2019 3:07 PM CDT): She will wear her APAP set from 6-8 cm of water pressure nightly for 7-9 hours. Reviewed and discussed the patient proper cleaning of her APAP equipment. Assessment & Plan (01/18/2019 9:58 AM CDT): She will be placed on air sense 10 APAP set from 6-8 cm water pressure. She will strive to use her machine nightly for 7-8 hours. Assessment & Plan (04/27/2018 4:29 PM CDT): She will wear her CPAP 6 cm water pressure nightly for 6-8 hours. Assessment & Plan (04/28/2017 4:33 PM CDT): She will wear her CPAP nightly for 7-9 hours. 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 Dietary sodium restriction. Blood pressure will be reassessed at the next regular appointment. Resolved Problems Problem Noted Date Diagnosed Date Resolved Date Body mass index (BMI) of 29. 0 to 29.9 in adult 11/06/2014 12/07/2020 Assessment & Plan (04/26/2019 3:06 PM CDT): She will try to get 30-45 minutes of exercise her activity in daily to help promote weight loss. She will eat more fresh vegetables, fruit and lean proteins to help promote weight loss. Obesity with body mass index 30 or greater 01/21/2014 04/26/2019 Encounters Date Type Department Care Team Description 03/20/2025 Orders Only [facility] Orthopaedic Surgery [address] [facility] [address] [place] [address] Yamileth Norton MD 03/14/2025 Results Follow-Up [facility] Cardiology [address] [place] [address] [address] [place] [address] Oumou Stearns NP Transthoracic Echo (TTE) Complete W Doppler/CF 03/13/2025 10:30 AM CDT Ancillary Procedure [facility] [address] [place] [address] [address] [place] [address] PASCUAL (dyspnea on exertion) 03/03/2025 Telephone [facility] Cardiology [address] [facility] 8th [place] [address] [place] [address] Patel Dunham MD 02/19/2025 Telephone [facility] Cardiology [address] [facility] 8th [place] [address] [place] [address] Patel Dunham MD 02/10/2025 10:30 AM CDT Office Visit [facility] Cardiology [address] [place] [address] 3 [address] [place] [address] Oumou Stearns NP PASCUAL (dyspnea on exertion) (Primary Dx) 02/03/2025 9:47 AM CDT - 02/03/2025 11:59 PM CDT Hospital Encounter [address] [address] Shortness of breath Discharge Disposition: Discharge to home or self care 02/03/2025 9:45 AM CDT Lab [facility] Outpatient Lab at [address] [address] Shortness of breath (Primary Dx) 02/03/[address] [facility] Medicine Cardiology [address] [facility] [address] [place] [address] Osvaldo Salazar MD from Last 3 Months Immunizations Immunization Administration Dates Next Due Influenza, Quadrivalent, Rec ombinant, Egg Free, Preservative Free, Intramuscular 05/01/2019,06/01/2018 Influenza, Unspecified 06/10/2024 Surgical History Surgery Date Site/Laterality Comments CATARACT EXTRACTION cataract HYSTERECTOMY hysterectomy OTHER SURGICAL HISTORY / DDD OTHER SURGICAL HISTORY bilateral salpingo oopherectomy CATARACT EXTRACTION 08/07/2014 - 08/06/2015 CHOLECYSTECTOMY 10/05/2018 - 11/04/2018 TUBAL LIGATION 25 years ago BREAST BIOPSY Right THYROIDECTOMY, PARTIAL 03/20/2023 Left OOPHORECTOMY COLONOSCOPY 2018 Medical History Medical History Date Comments Anxiety disorder Anxiety Adiposity Obesity Hypertension Hypertension Hx Other Medical Atrial fibrilla tion Hx Other Medical hypothyroid Hx Other Medical palpitations Hx Other Medical shortness of br eath Hx Other Medical alpha wave intr usions GERD (gastroesophageal reflux disease) Arthritis Sleep apnea Thyroid disease PONV (postoperative nausea and vomiting) Atrial fibrillation (HCC) Motion sickness HL (hearing loss) Coronary artery disease 2011 Tachcardi, AFIB Cataract Family History Medical History Relation Name Comments Breast cancer Cousin Alcohol abuse Father Jose Alarcon COPD Father Jose Alarcon Heart failure Father Jose Alarcon Hypertension Father Jose Alarcon Kidney disease Father Jose Alarcon Snoring Father Jose Alarcon Thyroid disease Father's Sister Cesilia Mckay Arthritis Mother Maryann Alarcon & Jose Alarcon Cardiomyopathy Mother Maryann Alarcon & Jose Alarcon Heart disease Mother Maryann Alarcon & Jose Faneymar Osteoarthritis Mother Maryann Alarcon & Jose Alarcon Anesthesia problems Neg Hx Relation Name Status Comments Cousin Father Jose Alarcon Father's Sister Cesilia Mckay Mother Maryann Alarcon & Jose Alarcon Social History Tobacco Use Types Packs/Day Years Used Date Smoking Tobacco: Never Smokeless Tobacco: Never Tobacco Cessation:Counseling Given: Not Answered Alcohol Use Standard Drinks/Week Comments Yes 0 [...] on file 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 Gender Identity Female 11/25/2019 12:00 PM CDT Sexual Orientation Straight 11/25/2019 12 :00 PM CDT Obstetrics History Para Term AB IAB SAB Ectopic Multiple Livin g Live Births 2 2 2 Date Outcome GA Total Labor Labor/2nd/3rd Weight Sex Type Anes PTL Rosa Maria A1 A5 Name Clin Term Term Last Filed Vital Signs Vital Sign Reading Time Taken Comments Blood Pressure 120/62 02/10/2025 10:22 AM CDT Pulse 104 02/10/2025 10:22 AM CDT Temperature 36.1 C (97 F) 12/09/2024 10:21 AM CDT Respiratory Rate 12 12/09/2024 10:21 AM CDT Oxygen Saturation 99% 02/10/2025 10:22 AM CDT Inhaled Oxygen Concentration - - Weight 86.6 kg (191 lb) 02/10/2025 10:22 AM CDT Height 165.1 cm (5' 5) 02/10/2025 10:22 AM CDT Body Mass Index 31.78 02/10/2025 10:22 AM CDT Plan of Treatment Health Maintenance Due Date Last Done Comments Depression Screening 1945 Hepatitis C Screening 1945 Osteoporosis Screening-Bone Density Scan 1945 DTaP/Tdap/Td Vaccine (1 - Tdap) 1956 Hepatitis B Screening 11/20/1963 Pneumococcal vaccine 65+ (1 of 1 - PCV) 11/20/1995 Zoster Vaccine (1 of 2) 11/20/1995 Well Visit 65+ 2010 Influenza Vaccine (#1) 2025 , 05/01/2019, 06/01/2018 Fall Risk Assessment 10/11/2025 10/11/2024 Breast Cancer Screening-Mammogram Discontinued 04/12/2024, 02/27/2023, 10/15/2021, Additional history exists Medical Devices Implanted Type Area Active Directory Specialist Device Identifier Shelf Expiration Date Model / Serial / Lot Pacemaker Pacemaker Left: Chest [employer]onic Description:No card [employer] Component Femoral Knee Porous Cr Narrow Right Persona Pps Size 8 [place] [employer] [id number] - [id number] Implanted:Qty: 1 on 10/10/2024 at [facility] Right: Knee [employer] 10/09/2033 [id number] / / [id number] [employer] Tibial Baseplate Knee Porous Right Fixed Keel Persona [place] Size E Titanium [id number] - [id number] Implanted:Qty: 1 on 10/10/2024 at [facility] Right: Knee [employer] 04/28/2034 [id number] / / [id number] [employer] Insert Tibial Knee Vitamin E Fixed Rm Persona Vivacit E 14mm Size 8 11 E F Polyethylene [id number] - [id number] Implanted:Qty: 1 on 10/10/2024 at [facility] Right: Knee [employer] 10/20/2028 [id number] / / [id number] Procedures Procedure Name Priority Date/Time Associated Diagnosis Comments TRANSTHORACIC ECHO (TTE) COMPLETE W DOPPLER/CF W CONTRAST Routine 03/13/2025 11:06 AM CDT PASCUAL (dyspnea on exertion) DEVICE CHECK - REMOTE Routine 02/03/2025 9:59 AM CDT EGFR Routine 02/03/2025 9:47 AM CDT Shortness of breath DIFFERENTIAL AUTO Routine 02/03/2025 9:4 7 AM CDT Shortness of breath COMPREHENSIVE METABOLIC PANEL Routine 02/03/2025 9:47 AM CDT Shortness of breath CBC WITH AUTO DIFFERENTIAL Routine 02/03/2025 9:47 AM CDT Shortness of breath SCREENING MAMMOGRAM BILATERAL W CHAPIN Schedule Routine, Read Routine (OP Routine) 04/12/2024 1:01 PM CDT Screening mammogram, encounter for from Last 3 Months or Most Recently Relevant to Health Maintenance Results * TRANSTHORACIC ECHO (TTE) COMPLETE W DOPPLER/CF W CONTRAST (03/13/2025 11:06 AM CDT) EF Mod BP 70 % CONS SCIMAGE Anatomical Region Laterality Modality Ultrasound 03/13/2025 10:1 2 AM CDT Narrative 03/13/2025 3:34 PM CDT [facility] Card[facility] Diagnostic Lab [address] , [address] [place] [address] Transthoracic Echocardiographic Report Patient Name: ESTHER CESPEDES J : 1945 (79y 3m) Gender: F Study Date: 03/13/2025 10:12:47 AM Ht(Inch): 65 Wt(Lb): 190.92 BSA: 1.99 Hand Cultivator: Mandy Archibald RDCS Location: [facility] Order Provider: OUMOU STEARNS Heart Rate: 77 BMI: 31.77 BP: 159 / 83 Ref Provider: OUMOU STEARNS PROCEDURES: Echocardiographic Report: Transthoracic complete echo with strain imaging and contrast, 2D, spectral and tissue Doppler, color flow Doppler, M-mode. Contrast: Contrast Enhancement was Employed: After initial imaging due to sub- optimal quality related to co-morbidity defined by patient's body habitus, due to suboptimal image quality with inadequate visualization of at least 2 of 16 LV wall segments in any view after initial imaging. Perflutren contrast was administered using the volume necessary to obtain adequate images and. 0.4 ml Optison Administered, (2.6 ml wasted). Technically difficult study due to: Body habitus. Poor acoustic windows. INDICATIONS: R06.09 Other forms of dyspnea. CONCLUSIONS: 1. Normal left ventricular size based on volume index. Eccentric LV hypertrophy. Normal left ventricular systolic function. The Ejection Fraction (Ziegler's) is measured at 70 %. The average global longitudinal strain is borderline. 2. Normal right ventricular size. Wire noted in the right heart. 3. The estimated right ventricular systolic pressure is 25 mmHg. 4. Small pericardial effusion. ATTESTATION: I have personally reviewed and interpreted this study without fellow or resident. - DISCLAIMER: The study images and the final report will be retained in the patient chart by the Echo Laboratory for the legally required time period. This chart constitutes the legal record of any testing performed. FINDINGS: Left Ventricle: Normal left ventricular size based on volume index. Eccentric LV hypertrophy. Normal left ventricular systolic function. The Ejection Fraction (Ziegler's) is measured at 70 %. The average global longitudinal strain is borderline. The LV global strain is: -16.9 %. Right Ventricle: Normal right ventricular size. Wire noted in the right heart. Left Atrium: The left atrium is normal in size. Right Atrium: The right atrium is normal in size. Mitral Valve: Normal Mitral Valve Structure. Mild mitral valve regurgitation. Aortic Valve: Normal trileaflet aortic valve. No aortic regurgitation. No aortic valve stenosis. Aortic valve dimensionless index is 0.59. Tricuspid Valve: Normal Tricuspid valve structure. Mild tricuspid regurgitation. The estimated right ventricular systolic pressure is 25 mmHg. Pulmonic Valve: Normal pulmonic valve structure. No pulmonic regurgitation. No pulmonic valve stenosis present. Pericardium: Small pericardial effusion. Aorta: Mild aortic root dilation at sinuses of Valsalva. Normal aortic root size when indexed. The ascending aorta is normal in size when indexed. IVC: IVC is normal in size. PASP: Normal estimated pulmonary artery systolic pressure. Rhythm: Normal Sinus rhythm was seen during the study. MEASUREMENTS: 2D/MM Value Range Doppler Value Range LVIDd 2D 4.98 cm [ 3.80 - 5.20 ] AV Peak Axel 1.9 m/s [ 1.0 - 1.7 ] LVIDs 2D 3.39 cm [ 2.20 - 3.50 ] AV Peak PG 14.44 mmHg IVSd 2D 1.28 cm [ 0.60 - 0.90 ] AV Mean PG 8 mmHg LVPWd 2D 1.00 cm [ 0.60 - 0.90 ] AV VTI 48.6 cm LV Thickness Ratio 1.3 LVOT Peak Axel 1.2 m/s [ 0.7 - 1.1 ] LV FS 2D 32.00 % [ 27.00 - 45.00 ] LVOT Peak PG 5.76 mmHg LV Mass 2D 220.17 g LVOT Mean PG 3 mmHg LV Mass Index 2D 110.64 g/m2 LVOT VTI 28.9 cm RWT 0.40 LVOT Diam 1.97 cm EDV Mod BP 114.67 ml [ 46.00 - 106.00 ] WESTON VTI 1.81 cm2 LV EDV Index 57.62 ml/m2 LVOT/AV VTI 0.59 - Dimensionless index (DVI) ESV Mod BP 34.76 ml [ 14.00 - 42.00 ] MV E Peak Axel 1.1 m/s [ 0.6 - 1.3 ] EF Mod BP 70 % [ 54 - 74 ] MV A Peak Axel 1.0 m/s [ 1.0 - 1.2 ] LV GLS -16.9 % [ -25.0 - -18.0 ] MV E/A 1.1 ratio [ 0.8 - 1.5 ] LA Length 4C 5.26 cm MV Decel Time 218.87 msec [ 104.00 - 258.00 ] LA Length 2C 5.43 cm Med E` Axel 6.4 cm/sec [ 8.0 - 25.0 ] LA Volume BP 54.61 ml Lat E` Axel 8.7 cm/sec [ 10.0 - 25.0 ] LA Volume Index 27.44 ml/m2 [ 16.00 - 34.00 ] Average E/E` 14.57 RV Base Dimen 2D 3.8 cm [ 2.5 - 4.2 ] RV S` 14.74 cm/sec RA Volume 31.32 ml TR Peak Axel 3.0 m/s [ 1.0 - 2.8 ] RA Volume Index 15.74 ml/m2 TR Peak PG 36.0 mmHg IVC Diam 2.02 cm PV Peak Axel 0.8 m/s [ 0.4 - 0.8 ] IVC Collapse 47 % PV Peak PG 2.56 mmHg AoR Diam 2D 3.40 cm [ 2.70 - 3.70 ] Ao Root Index 1.71 cm/m2 [ 1.00 - 2.00 ] Asc Ao Diam 2D 2.96 cm Asc Ao Index 1.49 cm/m2 Electronically Signed By: Marcell Ordonez MD 03/13/2025 3:34:08 PM CDT Procedure Note Marcell Ordonez MD - 03/13/2025 [facility] Cardiac Diagnostic Lab [address] , [address] [place] [address] Transthoracic Echocardiographic Report Patient Name: ESTHER CESPEDES J : 1945 (79y 3m) Gender: F Study Date: 03/13/2025 10:12:47 AM Ht(Inch): 65 Wt(Lb): 190.92 BSA: 1.99 Hand Cultivator: Mandy Archibald RDCS Location: [facility] Order Provider:OUMOU STEARNS Heart Rate: 77 BMI: 31.77 BP: 159 / 83 Ref Provider:OUMOU STEARNS PROCEDURES: Echocardiographic Report: Transthoracic complete echo with strain imagingand contrast, 2D, spectral and tissue Doppler, color flow Doppler, M-mode. Contrast: Contrast Enhancement was Employed: After initial imaging due tosub- optimal quality related to co-morbidity defined by patient's body habitus, due tosuboptimal image quality with inadequate visualization of at least 2 of 16 LV wallsegments in any view after initial imaging. Perflutren contrast was administered using thevolume necessary to obtain adequate images and. 0.4 ml Optison Administered, (2.6ml wasted). Technically difficult study due to: Body habitus. Poor acoustic windows. INDICATIONS: R06.09 Other forms of dyspnea. CONCLUSIONS: 1. Normal left ventricular size based on volume index. Eccentric LVhypertrophy. Normal left ventricular systolic function. The Ejection Fraction (Ziegler's) ismeasured at 70 %. The average global longitudinal strain is borderline. 2. Normal right ventricular size. Wire noted in the right heart. 3. The estimated right ventricular systolic pressure is 25 mmHg. 4. Small pericardial effusion. ATTESTATION: I have personally reviewed and interpreted this study without fellow orresident. - DISCLAIMER: The study images and the final report will be retained in the patientchart by the Echo Laboratory for the legally required time period. This chart constitutesthe legal record of any testing performed. FINDINGS: Left Ventricle: Normal left ventricular size based on volume index.Eccentric LV hypertrophy. Normal left ventricular systolic function. The EjectionFraction (Ziegler's) is measured at 70 %. The average global longitudinal strain is borderline.The LV global strain is: -16.9 %. Right Ventricle: Normal right ventricular size. Wire noted in the rightheart. Left Atrium: The left atrium is normal in size. Right Atrium: The right atrium is normal in size. Mitral Valve: Normal Mitral Valve Structure. Mild mitral valveregurgitation. Aortic Valve: Normal trileaflet aortic valve. No aortic regurgitation. Noaortic valve stenosis. Aortic valve dimensionless index is 0.59. Tricuspid Valve: Normal Tricuspid valve structure. Mild tricuspidregurgitation. The estimated right ventricular systolic pressure is 25 mmHg. Pulmonic Valve: Normal pulmonic valve structure. No pulmonicregurgitation. No pulmonic valve stenosis present. Pericardium: Small pericardial effusion. Aorta: Mild aortic root dilation at sinuses of Valsalva. Normal aorticroot size when indexed. The ascending aorta is normal in size when indexed. IVC: IVC is normal in size. PASP: Normal estimated pulmonary artery systolic pressure. Rhythm: Normal Sinus rhythm was seen during the study. MEASUREMENTS: 2D/MM Value Range DopplerValue Range LVIDd 2D 4.98 cm [ 3.80 - 5.20 ] AV Peak Vel1.9 m/s [ 1.0 - 1.7 ] LVIDs 2D 3.39 cm [ 2.20 - 3.50 ] AV Peak PG14.44 mmHg IVSd 2D 1.28 cm [ 0.60 - 0.90 ] AV Mean PG8 mmHg LVPWd 2D 1.00 cm [ 0.60 - 0.90 ] AV VTI48.6 cm LV Thickness Ratio 1.3 LVOT Peak Vel1.2 m/s [ 0.7 - 1.1 ] LV FS 2D 32.00 % [ 27.00 - 45.00 ] LVOT Peak PG5.76 mmHg LV Mass 2D 220.17 g LVOT Mean PG3 mmHg LV Mass Index 2D 110.64 g/m2 LVOT VTI28.9 cm RWT 0.40 LVOT Diam1.97 cm EDV Mod BP 114.67 ml [ 46.00 - 106.00 ] WESTON VTI1.81 cm2 LV EDV Index 57.62 ml/m2 LVOT/AV VTI0.59 - Dimensionless index (DVI) ESV Mod BP 34.76 ml [ 14.00 - 42.00 ] MV E Peak Vel1.1 m/s [ 0.6 - 1.3 ] EF Mod BP 70 % [ 54 - 74 ] MV A Peak Vel1.0 m/s [ 1.0 - 1.2 ] LV GLS -16.9 % [ -25.0 - -18.0 ] MV E/A1.1 ratio [ 0.8 - 1.5 ] LA Length 4C 5.26 cm MV Decel Ulvr703.87 msec [ 104.00 - 258.00 ] LA Length 2C 5.43 cm Med E` Vel6.4 cm/sec [ 8.0 - 25.0 ] LA Volume BP 54.61 ml Lat E` Vel8.7 cm/sec [ 10.0 - 25.0 ] LA Volume Index 27.44 ml/m2 [ 16.00 - 34.00 ] Average E/E`14.57 RV Base Dimen 2D 3.8 cm [ 2.5 - 4.2 ] RV S`14.74 cm/sec RA Volume 31.32 ml TR Peak Vel3.0 m/s [ 1.0 - 2.8 ] RA Volume Index 15.74 ml/m2 TR Peak PG36.0 mmHg IVC Diam 2.02 cm PV Peak Vel0.8 m/s [ 0.4 - 0.8 ] IVC Collapse 47 % PV Peak PG2.56 mmHg AoR Diam 2D 3.40 cm [ 2.70 - 3.70 ] Ao Root Index 1.71 cm/m2 [ 1.00 - 2.00 ] Asc Ao Diam 2D2.96 cm Asc Ao Index1.49 cm/m2 Electronically Signed By: Marcell Ordonez MD 03/13/2025 3:34:08 PM CDT Oumou Stearns NP CV ECHO PROCEDUR ES Final Result * DEVICE CHECK - REMOTE (02/03/2025 9:59 AM CDT) Anatomical Region Laterality Modality Other 02/03/2025 9:59 AM CDT Narrative 03/04/2025 10:39 AM CDT Interpretation Summary: Battery and Leads (BL) Normal parameters noted on battery and lead(s) --- 25 months (<3 to 48 months) remaining longevity (implanted 2010). Lead impedance, sensing, and threshold measurements are appropriate. Presenting Rhythm (DE) Atrial Sensing-Ventricular Sensing (-VS) --- /VS (SR) 67 to 70 bpm. Arrhythmic events (AE) Atrial High-Rate Episode(s) identified --- Since 11/04/24: 2 VHR episodes, max 6 sec, with EGMs appearing to show AT/1:1 AV rhythm (atrial beats in PVAB). Transmission Information (TI) Device Summary Report Follow Up (FU) Patient's primary treating physician will be apprised of findings Procedure Note Osvaldo Salazar MD - 03/04/2025 Interpretation Summary: Battery and Leads (BL) Normal parameters noted on battery and lead(s) --- 25 months (<3 to 48months) remaining longevity (implanted 2010). Lead impedance, sensing,and threshold measurements are appropriate. Presenting Rhythm (DE) Atrial Sensing-Ventricular Sensing (-VS) --- /VS (SR) 67 to 70 bpm. Arrhythmic events (AE) Atrial High-Rate Episode(s) identified --- Since 11/04/24: 2 VHRepisodes, max 6 sec, with EGMs appearing to show AT/1:1 AV rhythm (atrialbeats in PVAB). Transmission Information (TI) Device Summary Report Follow Up (FU) Patient's primary treating physician will be apprised of findings us Osvaldo Salazar MD [facility] PRO CEDURES Final Result * eGFR (02/03/2025 9:47 AM CDT) eGFR 73 >=60 mL/min/1. 73 m2 Comment: Interpretive Data Reference Interval Normal >/= 90 mL/min/1.73m2 Mildly decreased* 60 - 89 mL/min/1.73m2 Mildly to moderately decreased 45 - 59 mL/min/1.73m2 Moderately to severely decreased 30 - 44 mL/min/1.73m2 Severely decreased 15 - 29 mL/min/1.73m2 Kidney Failure < 15 mL/min/1.73m2 *Relative to young adult level Estimated glomerular filtration rate is determined by the 2020 CKD-EPI equation recommended by the National Kidney Foundation (A Unifying Approach to GFR Estimation: Recommendations of the NKF-ASK Task Force on Reassessing the Inclusion of Race in Diagnosing Kidney Disease, JASN 202). The CKD-EPI equation should not be used for patients with unstable renal function and has not been validated in children and those over 70. Current interpretive data was last reviewed 2021. Blood 02/03/2025 9:47 AM CDT 02/03/2025 3:39 PM CDT us Rashmi Li MD LAB BLOOD ORDERABLES Fin al Result [facility] [address] Department [place] [address] * Differential, auto (02/03/2025 9:47 AM CDT) Neutrophil abs 3.48 1.50 - 6.50 K/cumm Imm gran abs 0.02 0.00 - 0.10 K/cumm [facility] Lymphocyte abs 0.99 0.80 - 3.30 K/cumm [facility] Monocyte abs 0.60 0.20 - 0.80 K/cumm [facility] [facility] Eosinophil abs 0.08 0.00 - 0.50 K/cumm [facility] Basophil abs 0.05 0.00 - 0.10 K/cumm [facility] Neutrophil pct 66.6 % [facility] Comment: Interpretive Data Percent cell count reference ranges are not reported, since discordance with absolute values may lead to misinterpretation of CBC data. Current Interpretive Data was last revised on 2017. Imm gran pct 0.4 % [facility] Comment: Interpretive Data Percent cell count reference ranges are not reported, since discordance with absolute values may lead to misinterpretation of CBC data. Current Interpretive Data was last revised on 2017. Lymphocyte pct 19.0 % [facility] Comment: Interpretive Data Percent cell count reference ranges are not reported, since discordance with absolute values may lead to misinterpretation of CBC data. Current Interpretive Data was last revised on 2017. Monocyte pct 11.5 % [facility] Comment: Interpretive Data Percent cell count reference ranges are not reported, since discordance with absolute values may lead to misinterpretation of CBC data. Current Interpretive Data was last revised on 2017. Eosinophil pct 1.5 % [facility] Comment: Interpretive Data Percent cell count reference ranges are not reported, since discordance with absolute values may lead to misinterpretation of CBC data. Current Interpretive Data was last revised on 2017. Basophil pct 1.0 % [facility] Comment: Interpretive Data Percent cell count reference ranges are not reported, since discordance with absolute values may lead to misinterpretation of CBC data. Current Interpretive Data was last revised on 2017. Blood 02/03/2025 9:47 AM CDT 02/03/2025 3:05 PM CDT us Rashmi Li MD LAB BLOOD ORDERABLES Fin al Result Performing Organization Address [facility] Co de Phone Number [facility] [id number] [address] [facility] [place] [address] * (ABNORMAL) CBC with auto differential (02/03/2025 9:47 AM CDT) WBC 5.22 3.80 - 9.90 K/cumm Hgb 12.5 11.9 - 15.5 g/dL [facility] Hct 39.7 35.6 - 45.5 % [facility] Plt 268 150 - 400 K/cumm [facility] MPV 10.1 9.1 - 12.3 fL [facility] RBC 4.18 3.90 - 5.20 M/cumm [facility] MCV 95.0 81.3 - 96.4 fL [facility] MCH 29.9 27.1 - 33.3 pg [facility] MCHC 31.5(L) 32.3 - 35.7 g/dL [facility] RDW CV 13.1 11.1 - 14.9 % [facility] RDW SD 45.6 35.7 - 48.1 fL [facility] NRBC abs 0.00 0.00 - 0.01 K/cumm [facility] Blood 02/03/2025 9:47 AM CDT 02/03/2025 3:05 PM CDT Narrative [facility] - 02/03/2025 3:54 PM CDT Fax results to Dr Rashmi Li [phone] us Rashmi Li MD LAB BLOOD ORDERABLES Fin al Result Performing Organization Address [facility] Co de Phone Number ALEM [address] [address] [facility] AT [address] [place], [place] [id number] * Comprehensive metabolic panel (02/03/2025 9:47 AM CDT) Sodium 139 135 - 145 mmol/L Potassium, pl 4.4 3.3 - 4.9 mmol/L [facility] Chloride 103 97 - 110 mmol/L [facility] CO2 27 22 - 32 mmol/L [facility] Anion gap 9 2 - 15 mmol/L [facility] BUN 25 6 - 25 mg/dL [facility] Creatinine 0.82 0.60 - 1.10 mg/dL [facility] Glucose 95 70 - 199 mg/dL [facility] Comment: Interpretive Data Fasting glucose >/= 126 mg/dl is diagnostic for diabetes. Fasting is defined as no caloric intake for at least 8 hours. Fasting glucose between 100 mg/dl to 125 mg/dl is diagnostic of prediabetes. In a patient with classic symptoms of hyperglycemia or hyperglycemic crisis, a random glucose >/= 200 mg/dl is diagnostic for diabetes. In the absence of unequivocal hyperglycemia, results should be confirmed by repeat testing. The classification and Diagnosis of Diabetes Diabetes Care 202; 46: S19-S40. Current interpretive data was last revised 2022. Calcium 10.2 8.5 - 10.3 mg/dL [facility] Bilirubin, total 0.3 0.1 - 1.2 mg/dL [facility] Protein, pl 7.0 6.5 - 8.5 g/dL [facility] Albumin 4.0 3.5 - 5.0 g/dL [facility] Alk phos 106 40 - 130 Units/L [facility] ALT 13 7 - 45 Units/L [facility] AST 23 10 - 45 Units/L [facility] Blood Venous blood specimen / Unknown 02/03/2025 9:47 AM CDT 02/03/2025 3:05 PM CDT Narrative [facility] - 02/03/2025 4:02 PM CDT Fax results to Dr Rashmi Li [phone] us Rashmi Li MD LAB BLOOD ORDERABLES Fin al Result [facility] [place] [address] [address] Department [place] [address] * Screening Mammogram Bilateral W Chapin (04/12/2024 1:01 PM CDT) Anatomical Region Laterality Modality Breast Bilateral Mammography Impressions 04/12/2024 1:28 PM CDT BI-RADS ATLAS category (overall): 2 - Benign There is no mammographic evidence of malignancy. A 1 year screening mammogram is recommended. The patient has been or will be contacted. We recommend annual screening mammography for women at average risk of breast cancer beginning at age 40, based on guidelines of the [employer] (ACR Practice Parameter for the Performance of Screening and Diagnostic Mammography) and [employer]. For women with and elevated risk of breast cancer, please refer to the ACR Practice Parameter for specific screening recommendations. The patient will be entered into a reminder system with a target due date of 1 year for her next screening exam. Narrative 04/12/2024 1:28 PM CDT Screening Mammogram Bilateral W Chapin: 04/12/24 The study was acquired using full field digital technology and interpreted from soft copy. 2D digital mammographic views, as well as 3D digital tomosynthesis were performed in the CC and MLO projections. CLINICAL: Screening mammogram, encounter for. No relevant medical history has been documented for this patient. History of breast cancer in Cousin. COMPARISONS: 09/18/2023 Diagnostic Mammogram Left W Chapin 09/18/2023 US Breast Left Limited 03/15/2023 US Breast Left Limited 03/15/2023 Diagnostic Mammogram Left W Chapin 02/27/2023 Screening Mammogram Bilateral W Chapin 10/15/2021 Screening Mammogram Bilateral W Chapin 06/22/2020 Screening Mammogram Bilateral W Chapin 03/18/2019 Screening Mammogram Bilateral W Chapin BREAST TISSUE: There are scattered areas of fibroglandular density. FINDINGS: Pacemaker generator partially obscures the upper posterior left breast/axilla on the MLO view. Multiple benign appearing circumscribed masses in both breasts have not suspiciously changed. There is no new suspicious finding in either breast on mammogram. us Self Screening Mammogram IMG MAMMO PROCEDURES Fi nal Result from Last 3 Months or Most Recently Relevant to Health Maintenance Insurance MEDICARE [facility] MEDICARE [facility] MEDICARE [facility] MEDICARE [facility] Advance Directives For more information, please contact: [phone] * Full Code (Latest Code Status on File) Date Activated Date Inactivated Comments 10/10/2024 12:29 PM 10/11/2024 2:47 PM * Full Code Date Activated Date Inactivated Comments 03/20/2023 11:44 AM 03/21/2023 1:42 PM Care Teams Smash Piecer Relationship Specialty Start Date End Date Rahsmi Li MD [address] [place] [address] [address] PCP - General Family Medicine 09/24/24
--- OUTSIDE RECORDS SUMMARY | 2025-03-30 12:44 | XMS_ITS | Encounter Summary ---
Author Organization [facility] Address [address] [place] [address] Phone Care Team Providers Care Route Returner Name Role Phone Ros Gilliam MD Primary Care Provider [phone] Carl Kahn MD Primary Care Provider Juancho Contreras MD Primary Care Provider [phone] Rashmi Li MD Primary Care Provider + Encounter Details Date Type Department Care Team (Late st Contact Info) Description 09/22/2017 Orders Only [facility] CLINCONV Provider, MD Enmanuel [address] [place] [address] Social History Tobacco Use Types Packs/Day Years Used Date Smoking Tobacco: Never Alcohol Use Standard Drinks/Week Comments Yes 0 (1 standard drink = 0.6 oz pur e alcohol) Comments Unknown Sex and Gender Information Value Date Recorded Sex Assigned at Not on file 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 us Historical Provider [facility] CRUZITO TREJO Final Result documented in this encounter Visit Diagnoses Not on filedocumented in this encounter Care Teams Route Returner Relationship Specialty Start Date End Date Ros Gilliam MD [address] [place] [address] PCP - General 07/13/17 07/25/22 Carl Kahn MD [address] [place] [address] PCP - General Family Medicine 07/26/22 06/04/24 Juancho Contreras MD [address] [place] [address] PCP - General Family Medicine 06/05/24 09/23/24 Rashmi Li MD [address] [place] [address] [place] [address] PCP - General Family Medicine 09/24/24 documented as of this encounter
--- OUTSIDE RECORDS SUMMARY | 2025-03-30 12:44 | XMS_ITS | Encounter Summary ---
Author Organization [facility] Address [address] [place] [address] Phone Care Team Providers Care Bread Distributor Name Role Phone Carl Kahn MD Primary Care Provider [phone] Juancho Contreras MD Primary Care Provider [phone] Rashmi Li MD Primary Care Provider + Encounter Details Date Type Department Care Team (Latest Contact Info) Description 10/24/2022 Orders Only [facility] E[facility] Scanning, Provider Social History Tobacco Use Types Packs/Day Years Used Date Smoking Tobacco: Never Smokeless Tobacco: Never Alcohol Use Standard Drinks/Week Comments Yes 0 (1 standard drink = 0.6 oz pure alcohol) I will occasionally have a mixed. 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 Gender Identity Female 11/25/2019 12:00 PM CDT Sexual Orientation Straight 11/25/2019 12 :00 PM CDT documented as of this encounter Plan of Treatment Not on file documented as of this encounter Procedures Procedure Name Priority Date/Time Associated Diagnosis Comments SCAN - LABS 10/24/2022 documented in this encounter Results * SCAN - LABS (10/24/2022) us Provider Scanning Final Result documented in this encounter Visit Diagnoses Not on filedocumented in this encounter Care Teams Bread Distributor Relationship Specialty Start Date End Date Carl Kahn MD PCP - General Family Medicine 07/26/22 06/04/24 Juancho Contreras MD [address] [place] [address] PCP - General Family Medicine 06/05/24 09/23/24 Rashmi Li MD [address] [place] [address] [facility] [place] [address] PCP - General Family Medicine 09/24/24 documented as of this encounter
--- OUTSIDE RECORDS SUMMARY | 2025-03-30 12:44 | XMS_ITS | Encounter Summary ---
Author Organization [facility] Address [address] [place] [address] Phone Care Team Providers Care Landscape Foreman Name Role Phone Carl Kahn MD Primary Care Provider [phone] Juancho Contreras MD Primary Care Provider [phone] Rashmi Li MD Primary Care Provider + Encounter Details Date Type Department Care Team (Late st Contact Info) Description 11/16/2023 Telephone [facility] Cardiology [address] [facility] Advanced Medicine 8th [place] [address] [place] [id number] Osvaldo Salazar MD [address] [facility] [address] [place] [address] Social History Tobacco Use Types Packs/Day Years Used Date Smoking Tobacco: Never Smokeless Tobacco: Never Alcohol Use Standard Drinks/Week Comments Yes 0 (1 standard drink = 0.6 oz pure alcohol) I will occasionally have a mixed. AUDIT-C Answer Date Recorded Frequency of Alcohol Consumption Not on file 03/08/2023 Average Number of Drinks Not on file 023 Q3: How often do you have si x or more drinks on one occasion? Less than monthly 03/08/2023 Personal Safety Answer Date Recorded Have you ever been in or are you currently in a harmful physical or emotional relationship or is someone making you feel afraid or unsafe? 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 Gender Identity Female 11/25/2019 12:00 PM CDT Sexual Orientation Straight 11/25/2019 12 :00 PM CDT documented as of this encounter Plan of Treatment Not on file documented as of this encounter Visit Diagnoses Not on filedocumented in this encounter Care Teams Landscape Foreman Relationship Specialty Start Date End Date Carl Kahn MD PCP - General Family Medicine 07/26/22 06/04/24 Juancho Contreras MD [address] [place] [address] PCP - General Family Medicine 06/05/24 09/23/24 Rashmi Li MD [address] [place] [address] [address] PCP - General Family Medicine 09/24/24 documented as of this encounter
--- OUTSIDE RECORDS SUMMARY | 2025-03-30 12:44 | XMS_ITS | Encounter Summary ---
Author Organization [facility] Address [address] [place] [address] Phone Care Team Providers Care Hand Bander Name Role Phone Ros Gilliam MD Primary Care Provider [phone] Carl Kahn MD Primary Care Provider [phone] Juancho Contreras MD Primary Care Provider [phone] Rashmi Li MD Primary Care Provider + Encounter Details Date Type Department Care Team (Late st Contact Info) Description 11/07/2017 Orders Only [facility]INCONV Provider, MD Enmanuel [address] [place] [address] Social History Tobacco Use Types Packs/Day Years Used Date Smoking Tobacco: Never Alcohol Use Standard Drinks/Week Comments Yes 0 (1 standard drink = 0.6 oz pur e alcohol) Comments Unknown Sex and Gender Information Value Date Recorded Sex Assigned at Not on file 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 Historical Provider [facility] C[facility]IAC SERVICES PROCE DURES Final Result * CARDIOLOGY REPORT (11/07/2017) Anatomical Region Laterality Modality Other Narrative 11/07/2017 Ordered by an unspecified provider. Historical Provider [facility] CARDIAC SERVICES PROCE DURES Final Result documented in this encounter Visit Diagnoses Not on filedocumented in this encounter Care Teams Hand Bander Relationship Specialty Start Date End Date Ros Gilliam MD [address] [place] [address] PCP - General 07/13/17 07/25/22 Carl Kahn MD [address] [place] [address] PCP - General Family Medicine 07/26/22 06/04/24 Juancho Contreras MD [address] [facility] [place] [address] PCP - General Family Medicine 06/05/24 09/23/24 Rashmi Li MD [address] [place] [address] [place] [address] PCP - General Family Medicine 09/24/24 documented as of this encounter
--- NOTE | 2025-03-30 12:45 | ED.SKABFB ---
HPI - Skin/Abscess/Foreign Bdy General Chief complaint: Skin/Abscess/Foreign Body Stated complaint: LT Arm insect bite patient presents to the [facility] with complaints of being bitten by something in left arm above elbow about 4 days ago. Patient reports this area looks more like a bruise and was slightly itchy did not think anything of this. Noted last night and today area became slightly painful and noticed that it was more red and had a lump underneath. No medication remedies attempted for symptoms. Denies fever, chills, body aches, or drainage from the area. Related Data Home Medications ?Medication ?Instructions ?Recorded ?Confirmed ?Last Taken ?Type magnesium 250 mg tablet 250 mg PO DAILY 06/14/19 01/23/25 11/04/21 History ascorbic acid (vitamin C) 1,000 mg 1 g PO DAILY 02/10/22 01/23/25 Unknown History capsule cholecalciferol (vitamin D3) 25 25 mcg PO DAILY 02/10/22 01/23/25 Unknown History mcg/drop (1,000 unit/drop) oral drops losartan 50 mg tablet 50 mg PO BID 03/21/22 01/23/25 Unknown History chlorthalidone 25 mg tablet 25 mg PO DAILY 10/25/23 01/23/25 Unknown History Eye Promise PO 01/23/25 01/23/25 Unknown History aspirin 81 mg tablet,delayed mg PO 01/23/25 01/23/25 Unknown History release calcium PO BID 01/23/25 01/23/25 Unknown History levothyroxine 50 mcg tablet mcg PO 01/23/25 01/23/25 Unknown History Allergies Allergy/AdvReac Type Severity Reaction Status Date / Time latex Allergy Mild Rash Verified 03/30/25 12:47 Sulfa (Sulfonamide Allergy Unknown Unknown Verified 03/30/25 12:47 Antibiotics) sulfamethoxazole (Septra) Allergy Unknown Skin Verified 03/30/25 12:47 Reaction trimethoprim (Septra) Allergy Unknown Skin Verified 03/30/25 12:47 Reaction diclofenac AdvReac Intermediate gi upset, Verified 03/30/25 12:47 diarrhea, and intolerance lisinopril AdvReac Intermediate Cough Verified 03/30/25 12:47 mannitol (Reclast) AdvReac Intermediate Nausea Verified 03/30/25 12:47 tramadol AdvReac Intermediate Diarrhea Verified 03/30/25 12:47 water for injection,sterile AdvReac Intermediate Nausea Verified 03/30/25 12:47 (Reclast) zoledronic acid (Reclast) AdvReac Intermediate Nausea Verified 03/30/25 12:47 Review of Systems Constitutional: Constitutional: Reports as per HPI, Denies chills, Denies fatigue, Denies fever(s) and Denies weakness Eyes: Eyes: Reports no additional eye complaints ENT: Reports system reviewed and no additional complaints, except as documented Cardiovascular: Cardiovascular: Reports no additional cardiovascular complaints Respiratory: Respiratory: Reports no additional respiratory complaints Gastrointestinal: Gastrointestinal: Reports no additional gastrointestinal complaints Genitourinary: Genitourinary: Reports no additional female genitourinary complaints Musculoskeletal: Musculoskeletal: Reports as per HPI, Denies arthralgias, Reports joint swelling and Denies muscle cramps Integumentary/Breasts: Skin/Breast: Reports as per HPI, Reports pruritus, Reports erythema and Denies rash Neurologic: Reports as per HPI, Denies headache(s), Denies numbness and Denies weakness Psychiatric: Psychiatric: Reports no additional psychiatric complaints Endocrine: Endocrine: Reports no additional endocrine complaints Hematologic/Lymphatic: Hematologic/Lymphatic: Reports no additional hematologic/lymphatic complaints Allergic/Immunologic: Allergic/Immunologic: Reports no additional allergic/immunologic complaints [facility] Past Medical History Medical History (Updated 03/30/25 @ 12:58 by WALE Villarreal) Paroxysmal A-fib Hx of cholecystitis hx cholecystectomy Left thyroid nodule S/p left thyroidectomy Positive colorectal cancer screening using Cologuard test colonoscopy 4..22: internal hemmies/diverticulosis. repeat 10 years Right knee DJD Left knee DJD MARLEN on CPAP dx'd 7.15.11( aha 23/oxygen desat 69%. airsense 10 apap 6-8cm H2O. Airfit N30 1 medium nasal cushion ( saw pulmo 5.5.25) Chronic neck pain Essential (primary) hypertension Hypothyroidism (acquired) Obstructive sleep apnea (adult) (pediatric) Unspecified atrial fibrillation Upper respiratory infection Colonoscopy planned (~08/2014) Cardiac pacemaker Cholecystectomy planned Surgical History Surgical History (Updated 01/23/25 @ 15:36 by Rashmi Li MD) History of cholecystectomy H/O partial thyroidectomy H/O: hysterectomy (~1998) H/O cardiac radiofrequency ablation 2011 Family History Family History Mother Family history of malignant neoplasm Father Diabetes mellitus Hypertension Grandparent Cerebrovascular accident Other Carcinoma of colon Family history of kidney disease Family history of malignant neoplasm of breast in first degree relative Family history of malignant neoplasm of gastrointestinal tract Family history of thyroid disease Social History Social History (Updated 01/23/25 @ 15:32 by Yusra Jenkins MA) Smoking status: Never smoker Second hand tobacco smoke exposure: No Alcohol intake: current Alcohol use details: 1-2 drinks every few months Substance use: never Substance use type: does not use Do You Feel Safe in your Home?: Yes Lack of Transportation: No Lack of Food: Never True Current Housing: I Have Housing Concerned About Future Housing: No Difficulty Paying Gas/Electric Bills: No Currently Unemployed: No Education: High School Diploma/GED Difficulty w/ Childcare or Family Care: No Living arrangements: with family Spiritual care concerns: No Exam Const: General: healthy appearing and no acute distress Nutritional Appearance: well nourished Orientation/consciousness: patient oriented x3 Limitations: no limitations Resp: Effort & Inspection: normal respiratory effort Auscultation: clear to auscultation bilaterally Cardio: Rate: regular rate Rhythm: regular rhythm Skin: General skin exam: normal color Rashes: no rashes Other: Circular area of erythema with 1 cm and diameter with warmth, minimal fluctuance and center puncture wound consistent with inflamed insect bite Neuro: General: patient oriented x3 and moves all extremities Speech: normal speech Gait exam (Neuro): Normal gait present Psych: Mental Status: mental status grossly normal Affect: normal affect Attitude: cooperative Course Course Level of Care: Express Care Visit MDM - Skin/Abscess/Foreign Bdy MDM Narrative Medical decision making narrative: The patient was evaluated by myself in the express care. History is obtained from patient who is an independent historian and physical exam was performed. Available medical records were reviewed at this time. Exam findings show no acute concerns or changes; patient is non-toxic appearing and is in no distress. Patient is appropriate for outpatient treatment and follow-up. I have evaluated and discussed social determinants of health with the patient that could potentially impact subsequent diagnosis and treatment plans. Differential diagnosis and treatment plan were discussed with the patient. Patient agrees with discussion and after shared medical decision making agrees with plan of care. All questions were answered to the patient's satisfaction. Differential Diagnosis Differential diagnosis: Likely allergic reaction to drug, cellulitis, insect bites, impetigo and contact dermatitis Medical Records Attestation: I reviewed the patient's medical records. Discharge Plan Discharge Clinical Impression: Insect bites, Cellulitis of arm, left Patient Disposition: Home Condition: Stable Instructions: Antibiotic Form, Cellulitis (ED) Additional Instructions: Clean with soap and water only; Avoid using alcohol and peroxide. Elevate the affected area if possible Alternate Tylenol/ibuprofen for as needed for pain Acetaminophen(Tylenol) 650-1000mg every 4-6hours with max of 4000mg/day. Nonsteroidal anti-inflammatory agent (NSAIDs-ibuprofen): 400mg every 4-6hours with max 2400mg/day Take antibiotic until it's gone. Please schedule a follow up visit with your personal physician for further evaluation and treatment within 3-5days OR if your symptoms persist, change or worsen significantly before you can contact your personal physician then please, without delay, go to the emergency department for further evaluation. Patient Language: Georgian Prescriptions: New cephalexin 500 mg capsule 500 mg PO Q12H Qty: 20 0RF triamcinolone acetonide 0.1 % cream 1 applic topical TID Qty: 80 0RF No Action losartan 50 mg tablet 50 mg PO BID triamcinolone acetonide 0.1 % cream 1 applic topical BID Qty: 80 0RF Eye Promise PO calcium PO BID levothyroxine 50 mcg tablet PO aspirin 81 mg tablet,delayed release (DR/EC) PO magnesium 250 mg tablet 250 mg PO DAILY ascorbic acid (vitamin C) 1,000 mg capsule 1 g PO DAILY cholecalciferol (vitamin D3) 25 mcg/drop ( 1,000 unit/drop) drops 25 mcg PO DAILY chlorthalidone 25 mg tablet 25 mg PO DAILY amlodipine 5 mg tablet See Rx Instructions .ROUTE .COMPLEX Qty: 90 0RF Dose Instruction: TAKE 1 TABLET BY MOUTH DAILY Rx Instructions: TAKE 1 TABLET BY MOUTH DAILY Follow-up/Referrals: Rashmi Li MD [Primary Care Provider, Family Practice]
--- OUTSIDE RECORDS SUMMARY | 2025-03-30 12:45 | XMS_ITS | Clinical Summary ---
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 Gender Identity Not on file Sexual Orientation Not on file Plan of Treatment Health Maintenance Due Date Last Done Comments Hepatitis C Virus (HCV) Screening 1945 TdaP Immunization 1945 Pneumococcal Immunization (5 0+ years) (1 of 1 - PCV) 11/20/1995 Zoster Immunization (1 of 2) 11/20/1995 Respiratory Syncytial Virus (RSV) Immunization (Adult) (1 - 1-dose 75+ series) 2020 SARS-COV-2 Immunization ( - season) 2024 Influenza Immunization (#1) 04/07/202504/08, 06/01/2018 Hepatitis B Immunization Aged Out No longer eligible based on patient's age to complete this topic Human Papillomavirus (HPV) Immunization Aged Out No longer eligible b ased on patient's age to complete this topic Meningococcal Immunization (ACWY) Aged Out No longer eligible b ased on patient's age to complete this topic Rotavirus Immunization Aged Out No lo nger eligible based on patient's age to complete this topic
[2025-03-30 12:48] VITALS: BP 157/58; PULSE 100; RESP 18; TEMP 36.3; O2SAT 100
== END 2025-03-30 13:00 | disposition home or self-care (01) ==
PROVIDERS: Emergency Provider Nurse Practitioner Family; PCP Family Medicine
DX: S40.862A Insect bite (nonvenomous) of left upper arm, initial encounter (principal); L03.114 Cellulitis of left upper limb; I48.0 Paroxysmal atrial fibrillation; M17.0 Bilateral primary osteoarthritis of knee; G47.33 Obstructive sleep apnea (adult) (pediatric); I10 Essential (primary) hypertension; E03.9 Hypothyroidism, unspecified; Z95.0 Presence of cardiac pacemaker; Z90.89 Acquired absence of other organs; Z79.82 Long term (current) use of aspirin
CPT/HCPCS: 99213; G0463

== ENCOUNTER 2025-06-03 09:44 | Outpatient (CLI) | payer MEDICARE, BC, SELFPAY ==
--- OUTSIDE RECORDS SUMMARY | 2025-06-03 10:46 | XMS_ITS | Clinical Summary ---
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
--- OUTSIDE RECORDS SUMMARY | 2025-06-03 10:46 | XMS_ITS | Encounter Summary ---
Author Organization [facility] Address [address] [place] [address] Phone Care Team Providers Care Log Turner Name Role Phone Ros Gilliam MD Primary Care Provider [phone] Carl Kahn MD Primary Care Provider [phone] Juancho Contreras MD Primary Care Provider [phone] Rashmi Li MD Primary Care Provider + Encounter Details Date Type Department Care Team (Latest Contact Info) Description 11/20/2020 Orders Only [facility] Same, Wilmer Witt MD [address] [place], [place] [id number] Social History Tobacco Use Types Packs/Day Years Used Date Smoking Tobacco: Never Smokeless Tobacco: Never Alcohol Use Standard Drinks/Week Comments Yes 0 (1 standard drink = 0.6 oz pure alcohol) I will occasionally have a mixed. Comments Unknown Sex and Gender Information Value Date Recorded Sex Assigned at Not on file Legal Sex Female 8:26 PM [place] GUIDE Gender Identity Female 11/25/2019 12:00 PM CDT [...] on filedocumented in this encounter Care Teams Log Turner Relationship Specialty Start Date End Date Ros Gilliam MD [address] [place] [address] PCP - General 07/13/17 07/25/22 Carl Kahn MD [address] [place] [address] PCP - General Family Medicine 07/26/22 06/04/24 Juancho oCntreras MD [address] [place] [address] PCP - General Family Medicine 06/05/24 09/23/24 Rashmi Li MD [address] [place] [address] [place] [address] PCP - General Family Medicine 09/24/24 documented as of this encounter
--- OUTSIDE RECORDS SUMMARY | 2025-06-03 10:46 | XMS_ITS | Encounter Summary ---
Author Organization [facility] Address [address] [place] [address] Phone Care Team Providers Care Clinical Haematologist Name Role Phone Ros Gilliam MD Primary Care Provider [phone] Ros Gilliam MD Primary Care Provider [phone] Unknown, Notinfile Primary Care Provider Unavail able Ros Gilliam MD Primary Care Provider [phone] Unknown, Notinfile Primary Care Provider Unavail able Ros Gilliam MD Primary Care Provider Carl Kahn MD Primary Care Provider Juancho Contreras MD Primary Care Provider [phone] Rashmi Li MD Primary Care Provider + Encounter Details Date Type Department Care Team (Late st Contact Info) Description 10/20/2016 Orders Only [facility] Provider, MD Enmanuel [address] [place] [address] Social History Tobacco Use Types Packs/Day Years Used Date Smoking Tobacco: Never Alcohol Use Standard Drinks/Week Comments Yes 0 (1 standard drink = 0.6 oz pur e alcohol) Comments Unknown Sex and Gender Information Value Date Recorded Sex Assigned at Not on file 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 Gender Identity Female 11/25/2019 12:00 PM CDT [...] on filedocumented in this encounter Care Teams Clinical Haematologist Relationship Specialty Start Date End Date Ros Gilliam MD [address] [place] [address] PCP - General 10/20/14 01/12/17 Ros Gilliam MD [address] [place] [address] PCP - General 01/13/17 01/13/17 Unknown, Notinfile PCP - General 01/14/17 01/22/17 Ros Gilliam MD [address] [place] [address] PCP - General 01/23/17 03/08/17 Unknown, Notinfile PCP - General 03/09/17 07/12/17 Ros Gilliam MD [address] [place] [address] PCP - General 07/13/17 07/25/22 Carl Kahn MD PCP - General Family Medicine 07/26/22 06/04/24 [place] [address] PCP - General Family Medicine 06/05/24 09/23/24 Rashmi Li MD [address] [place] [address] [address] [place] [address] PCP - General Family Medicine 09/24/24 documented as of this encounter
--- OUTSIDE RECORDS SUMMARY | 2025-06-03 10:46 | XMS_ITS | Encounter Summary ---
Author Organization [facility] Address [address] [place] [address] Phone Care Team Providers Care Dictaphone Typist Name Role Phone Ros Gilliam MD Primary Care Provider [phone] Carl Kahn MD Primary Care Provider [phone] Juancho Contreras MD Primary Care Provider [phone] Rashmi Li MD Primary Care Provider + Encounter Details Date Type Department Care Team (Late st Contact Info) Description 04/30/2020 Telephone [facility] Cardiology [address] [facility] 8th [place] [address] [place] [id number] Tone Patel MD [address] 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 Gender Identity Female 11/25/2019 12:00 PM CDT Sexual Orientation Straight 11/25/2019 12 :00 PM CDT documented as of this encounter Plan of Treatment Not on file documented as of this encounter Visit Diagnoses Not on filedocumented in this encounter Care Teams Dictaphone Typist Relationship Specialty Start Date End Date Ros Gilliam MD [address] [place] [address] PCP - General 07/13/17 07/25/22 Carl Kahn MD [address] [place] [address] PCP - General Family Medicine 07/26/22 06/04/24 Juancho Contreras MD [address] [place] [address] PCP - General Family Medicine 06/05/24 09/23/24 Rashmi Li MD [address] [place] [address] [place] [address] PCP - General Family Medicine 09/24/24 documented as of this encounter
--- OUTSIDE RECORDS SUMMARY | 2025-06-03 10:46 | XMS_ITS | Clinical Summary ---
Author Organization [facility] Address [address] [place] [address] Care Team Providers Care Cabin Crew Name Role Phone Rashmi Li MD Primary [...] total) by mouth nightly 10/11/19 24 Active cholecalciferol (Vitamin D3) 1,000 unit capsuleIndicati ons:Vitamin D Deficiency Take 1 capsule (1,000 Units total) by mouth 2 (two) times a day Active acetaminophen 500 mg capsuleIndicati ons:Pain Take 2 capsules (1,000 mg total) by mouth every 8 (eight) hours 90 tablet 10/11/19 25 Active chlorthalidone (HYGROTON) 25 mg tablet Take 1 tablet (25 mg total) by mouth daily 90 tablet 3 03/03/20 25 Active levothyroxine (SYNTHROID) 50 mcg tabletIndicatio ns: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 12 tablet/capsu le 03/20/20 25 Active losartan (COZAAR) 50 mg tablet TAKE 1 TABLET(50 MG) BY MOUTH TWICE DAILY 180 tablet 1 05/08/20 25 Active losartan (COZAAR) 50 mg tablet Take 1 tablet (50 mg total) by mouth 2 (two) times a day 180 tablet 3 08/13/19 25 025 Discontinued Active Problems Problem Noted Date Diagnosed Date Subclinical hypothyroidism 05/12/2025 Hyperglycemia 05/12/2025 Thyroid nodule 05/12/2025 Primary osteoarthritis of left knee 05/08/2024 Primary [...] Redness 03/20/2018 Overview (03/20/2018): Above pacer site Essential hypertension 04/28/2016 Overview (11/11/2016): Essential hypertension Obstructive sleep apnea syndrome 10/20/2014 Overview (11/11/2016): Obstructive sleep apnea Assessment & Plan (04/23/2025 11:01 AM CDT): Compliance data reviewed and discussed MARLEN - good compliance and response to therapy. Benefiting from therapy. Continue PAP therapy. Compliance data reviewed and discussed. Equipment maintenance discussed. RTC in one year or as needed. Continue non-invasive ventilation, New Order for yearly supplies entered. Pillows, Prov Plus Assessment & Plan (04/26/2019 3:07 PM CDT): [...] tachycardia 10/23/2013 Notalgia 07/18/2012 Gross hematuria 07/18/2012 detention current use of anticoagulant therapy 0 01/25/2012 [...] Encounters Date Type Department Care Team Description 05/12/2025 11:01 AM CDT - 05/12/2025 11:59 PM CDT Hospital Encounter [address] [address] Subclinical hypothyroidism; Hyperglycemia Discharge Disposition: Discharge to home or self care 05/12/2025 11:00 AM CDT Lab [facility] Medicine Infectious Diseases [address] [facility] [address] [place] [address] 05/12/2025 10:40 AM CDT Office Visit [facility] Endocrinology Metabolism and Lipid [address] [facility] [address] [place] [address] Liya Flanagan MD Subclinical hypothyroidism (Primary Dx); Hyperglycemia; Thyroid nodule 05/09/2025 Telephone [facility] Cardiology [address] [facility] 8th [place] [address] [place] [address] Osvaldo Salazar MD 05/09/2025 Telephone [facility] Cardiology [address] [facility] 8th [place] [address] [place] [address] Osvaldo Salazar MD 05/05/2025 Telephone [facility] Cardiology [address] [facility] 8th [place] [address] [place] [address] Osvaldo Salazar MD 04/23/2025 10:15 AM CDT Office Visit [facility] [address] [facility] [address] [place] [address] Alexi Singletary DO Obstructive sleep apnea syndrome (Primary Dx) 03/20/2025 Orders Only [facility] Orthopaedic Surgery [address] [facility] [address] [place] [address] Yamileth Norton MD 03/14/2025 Results Follow-Up [facility] Cardiology [address] [facility] [address] [place] [address] Oumou Stearns NP Transthoracic Echo (TTE) Complete W Doppler/CF 03/13/2025 10:30 AM CDT Ancillary Procedure [facility] [address] [facility] [address] [place] [address] PASCUAL (dyspnea on exertion) 03/03/2025 Telephone [facility] Medicine Cardiology [address] [facility] Advanced Medicine 8th [address] [place] [phone] Patel Dunham MD from Last 3 Months Immunizations Immunization Administration Dates Next Due Influenza, Quadrivalent, Rec ombinant, Egg Free, Preservative Free, Intramuscular 05/01/2019,06/01/2018 Influenza, Unspecified 06/10/2024 Surgical History Surgery Date Site/Laterality Comments CATARACT EXTRACTION cataract HYSTERECTOMY hysterectomy OTHER SURGICAL HISTORY pacemaker / DDD OTHER SURGICAL HISTORY bilateral salpingo [...] Cousin Father Jose Alarcon Father's Sister Cesilia Schmaryskie Mother Maryann Alarcon & Jose Alarcon Social [...] on file 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 Gender Identity Female 11/25/2019 12:00 PM CDT Sexual Orientation Straight 11/25/2019 12 :00 PM CDT Obstetrics History Para Term AB IAB SAB Ectopic Multiple Livin g Live Births 2 2 2 Date Outcome GA Total Labor Labor/2nd/3rd Weight Sex Type Anes PTL Rosa Maria A1 A5 Name Clin Term Term Last Filed Vital Signs Vital Sign Reading Time Taken Comments Blood Pressure 134/68 05/12/2025 10:28 AM CDT Pulse 86 05/12/2025 10:28 AM CDT Temperature 36.1 C (97 F) 05/12/2025 10:28 AM CDT Respiratory Rate 19 04/23/2025 10:3 6 AM CDT Oxygen Saturation 95% 04/23/2025 10: 36 AM CDT Inhaled Oxygen Concentration - - Weight 89.3 kg (196 lb 12.8 oz) 025 10:28 AM CDT Height 167.6 cm (5' 5.98) 05/12/2025 1 0:28 AM CDT Body Mass Index 31.78 05/12/2025 10:28 AM CDT Plan of Treatment Health Maintenance Due Date Last Done Comments Depression Screening 1945 Hepatitis C Screening 1945 Osteoporosis Screening-Bone Density Scan 1945 Hepatitis B Screening 11/20/1963 Zoster Vaccine (1 of 2) 11/20/1995 Well Visit 65+ 2010 DTaP/Tdap/Td Vaccine (2 - Td or Tdap) 01/18/2022 01/19/2012 Influenza Vaccine (#1) 2025 4, 06/10/2024, 06/20/2023, Additional history exists Fall Risk Assessment 10/11/2025 10/11/2024 Pneumococcal vaccine 65+ Completed 11/12/2014, 06/07 Breast Cancer Screening-Mammogram Discontinued 04/12/2024, 02/27/2023, 10/15/2021, Additional history exists Medical Devices Implanted Type Area Cable Supervisor Device Identifier Shelf Expiration Date Model / Serial / Lot Pacemaker Pacemaker Left: Chest Medtronic Description:No card [employer] Component Femoral Knee Porous Cr Narrow Right Persona Pps Size 8 [place] Chromium [id number] - [id number] Implanted:Qty: 1 on 10/10/2024 at [facility] Right: Knee [employer] 10/09/2033 [id number] / / [id number] [employer] Tibial Baseplate Knee Porous Right Fixed Keel Persona [place] Size E Titanium [id number] - [id number] Implanted:Qty: 1 on 10/10/2024 at [facility] Right: Knee [employer] 04/28/2034 [id number] / / [id number] [employer] Insert Tibial Knee Vitamin E Fixed Rm Persona Vivacit E 14mm Size 8 11 E F Polyethylene [id number] - [id number] Implanted:Qty: 1 on 10/10/2024 at [facility] Right: Knee [employer] 10/20/2028 [id number] / / [id number] Procedures Procedure Name Priority Date/Time Associated Diagnosis Comments THYROID FUNCTION CASCADE Routine 05/12/2025 11:01 AM CDT Subclinical hypothyroidism HEMOGLOBIN A1C Routine 05/12/2025 11:01 AM CDT Subclinical hypothyroidism Hyperglycemia TRANSTHORACIC ECHO (TTE) COMPLETE W DOPPLER/CF W CONTRAST Routine 03/13/2025 11:06 AM CDT PASCUAL (dyspnea on exertion) SCREENING MAMMOGRAM BILATERAL W CHAPIN Schedule Routine, Read Routine (OP Routine) 04/12/2024 1:01 PM CDT Screening mammogram, encounter for from Last 3 Months or Most Recently Relevant to Health Maintenance Results * Thyroid Function Ward (05/12/2025 11:01 AM CDT) TSH 2.89 0.30 - 4.20 mcIUnit/mL Blood 05/12/2025 11:0 1 AM CDT 05/12/2025 3:28 PM CDT Liya Child MD LAB BLOOD ORDERABLES Final Result Performing Organization Address [facility] Co de Phone Number ALEM [address] [employer] [place], [place] [id number] * Hemoglobin A1c (05/12/2025 11:01 AM CDT) Hgb A1C 5.6 4.0 - 5.6 % Estimated Average Glucose 114 mg/dL ALEM WOODWARD Comment: The ADA recommends reporting an estimated Average Glucose (eAG) with all Hemoglobin A1c results using the equation derived from a study of 507 normal and diabetic adults. Minority populations were underrepresented and children were not included. (Diabetes Care 31:6848-5797, 2008). The eAG is not equivalent to a fasting glucose. Blood 05/12/2025 11:0 1 AM CDT 05/12/2025 3:28 PM CDT Liya Child MD LAB BLOOD ORDERABLES Final Result Performing Organization Address [facility] de Phone Number ALEM [address] [place] [address] * TRANSTHORACIC ECHO (TTE) COMPLETE W DOPPLER/CF W CONTRAST (03/13/2025 11:06 AM CDT) EF Mod BP 70 % CONS SCIMAGE Anatomical Region Laterality Modality Ultrasound 03/13/2025 10:1 2 AM CDT Narrative 03/13/2025 3:34 PM CDT Heart [facility] Cardiac Diagnostic Lab [address] [place] [address] Transthoracic Echocardiographic Report Patient Name: ESTHER CESPEDES J : 1945 (79y 3m) Gender: F Study Date: 03/13/2025 10:12:47 AM Ht(Inch): 65 Wt(Lb): 190.92 BSA: 1.99 Strategic Partnership Specialist: Mandy Archibald RDCS Location: [facility] Order Provider: OUMOU STEARNS Heart Rate: 77 [...] Procedure Note Marcell Ordonez MD - 03/13/2025 [facility] Cardiac Diagnostic Lab [address], [address] [place] [address] Transthoracic Echocardiographic Report Patient Name: ESTHER CESPEDES J : 1945 (79y 3m) Gender: F Study Date: 03/13/2025 10:12:47 AM Ht(Inch): 65 Wt(Lb): 190.92 BSA: 1.99 Strategic Partnership Specialist: Mandy Archibald RDCS Location: [facility] Order Provider:OUMOU STEARNS Heart Rate: 77 BMI: [...] LA Length 4C 5.26 cm MV Decel Cwsx380.87 msec [ 104.00 - 258.00 ] LA [...] Ordonez MD 03/13/2025 3:34:08 PM CDT Oumou Yeboah Daryn GROUP SOCIAL WORKER CV ECHO PROCEDUR ES Final Result * Screening Mammogram Bilateral W Chapin (04/12/2024 [...] age 40, based on guidelines of the [employer] [employer] (ACR Practice Parameter for the Performance of Screening and Diagnostic Mammography) and [employer] [employer]. For women [...] W Chapin 03/18/2019 Screening Mammogram Bilateral W Chaipn BREAST TISSUE: There are scattered areas of [...] Recently Relevant to Health Maintenance Insurance MEDICARE [facility] FEDERAL MEDICARE [facility] FEDERAL MEDICARE BCBS FEDERAL Advance Directives For more information, please contact: [phone] * Full Code (Latest Code Status on File) Date Activated Date Inactivated Comments 10/10/2024 12:29 PM 10/11/2024 2:47 PM * Full Code Date Activated Date Inactivated Comments 03/20/2023 11:44 AM 03/21/2023 1:42 PM Care Teams Cabin Crew Relationship Specialty Start Date End Date Rashmi Li MD [facility] [address] [address] PCP - General Family Medicine 09/24/24
--- OUTSIDE RECORDS SUMMARY | 2025-06-03 10:46 | XMS_ITS | Encounter Summary ---
Author Organization [facility] Address [address] [place] [address] Phone Care Team Providers Care On Call Name Role Phone Carl Kahn MD Primary Care Provider [phone] Juancho Contreras MD Primary Care Provider [phone] Rashmi Li MD Primary Care Provider + Encounter Details Date Type Department Care Team (Late st Contact Info) Description 11/16/2023 Telephone [facility] Cardiology [address] [facility] [address] [facility] 8th [place] [address] [place] [address] Osvaldo Salazar MD [address] [facility] [address] [place] [address] Social History Tobacco Use Types [...] on file 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 Gender Identity Female 11/25/2019 12:00 PM CDT Sexual Orientation Straight 11/25/2019 12 :00 PM CDT documented as of this encounter Plan of Treatment Not on file documented as of this encounter Visit Diagnoses Not on filedocumented in this encounter Care Teams On Call Relationship Specialty Start Date End Date Carl Kahn MD PCP - General Family Medicine 07/26/22 06/04/24 Juancho Contreras MD [address] [place] [address] PCP - General Family Medicine 06/05/24 09/23/24 Rashmi Li MD [address] [place] [address] [address] PCP - General Family Medicine 09/24/24 documented as of this encounter
--- OUTSIDE RECORDS SUMMARY | 2025-06-03 10:46 | XMS_ITS | Encounter Summary ---
Author Organization [facility] Address [address] [place] [address] Phone Care Team Providers Care Taper Operator Name Role Phone Rashmi Li MD Primary Care Provider + Encounter Details Date Type Department Care Team (Late st Contact Info) Description 05/09/2025 Telephone [facility] Medicine Cardiology [address] [facility] Advanced Medicine 8th [place] [address] [place] [address] Osvaldo Salazar MD [address] [facility] [address] [place] [address] Social History Tobacco Use Types Packs/Day Years [...] on file 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 Gender Identity Female 11/25/2019 12:00 PM CDT Sexual Orientation Straight 11/25/2019 12 :00 PM CDT documented as of this encounter Miscellaneous Notes * Telephone Encounter - Zulema Franco - 05/09/2025 12:25 PM CDT Martin Pt calling back to reschedule her 05/23/25 bmp'd appts documented in this encounter Plan of Treatment Not on file documented as of this encounter Visit Diagnoses Not on filedocumented in this encounter Care Teams Taper Operator Relationship Specialty Start Date End Date Rashmi Li MD [facility] [address] [address] PCP - General Family Medicine 09/24/24 documented as of this encounter
--- OUTSIDE RECORDS SUMMARY | 2025-06-03 10:47 | XMS_ITS | Encounter Summary ---
Author Organization [facility] Address [address] [place] [address] Phone Care Team Providers Care Supervisor Kosher Dietary Service Name Role Phone Ros Gilliam MD Primary Care Provider [phone] Ros Gilliam MD Primary Care Provider [phone] Unknown, Notinfile Primary Care Provider Unavail able Ros Gilliam MD Primary Care Provider [phone] Unknown, Notinfile Primary Care Provider Unavail able Ros Gilliam MD Primary Care Provider [phone] Carl Kahn MD Primary Care Provider [phone] Juancho Contreras MD Primary Care Provider [phone] Rashmi Li MD Primary Care Provider + Encounter Details Date Type Department Care Team (Late st Contact Info) Description 10/24/2013 Orders Only [facility] CAR CLINCONV Provider, MD En[facility] [address] [place] [address] Social History Tobacco Use Types Packs/Day Years Used Date Smoking Tobacco: Never Assessed Comments Unknown Sex and Gender Information Value Date Recorded Sex Assigned at Not on file 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 Gender Identity Female 11/25/2019 12:00 PM CDT [...] on filedocumented in this encounter Care Teams Supervisor Kosher Dietary Service Relationship Specialty Start Date End Date Ros Gilliam MD [address] [place] [address] PCP - General 10/20/14 01/12/17 Ros Gilliam MD [address] [place] [address] PCP - General 01/13/17 01/13/17 Unknown, Notinfile PCP - General 01/14/17 01/22/17 Ros Gilliam MD [address] [place] [address] PCP - General 01/23/17 03/08/17 Unknown, Notinfile PCP - General 03/09/17 07/12/17 Ros Gilliam MD [address] [place] [address] PCP - General 07/13/17 07/25/22 Carl Kahn MD PCP - General Family Medicine 07/26/22 06/04/24 [place] [address] PCP - General Family Medicine 06/05/24 09/23/24 Rashmi Li MD [address] [place] [address] [address] [place] [address] PCP - General Family Medicine 09/24/24 documented as of this encounter
--- OUTSIDE RECORDS SUMMARY | 2025-06-03 10:47 | XMS_ITS | Encounter Summary ---
Author Organization [facility] Address [address] [place] [address] Phone Care Team Providers Care Financial Services Manager Name Role Phone Ros Gilliam MD Primary Care Provider [phone] Ros Gilliam MD Primary Care Provider [phone] Unknown, Notinfile Primary Care Provider Unavail able Ros Gilliam MD Primary Care Provider [phone] Unknown, Notinfile Primary Care Provider Unavail able Ros Gilliam MD Primary Care Provider [phone] Carl Kahn MD Primary Care Provider [phone] Juancho Contreras MD Primary Care Provider [phone] Rashmi Li MD Primary Care Provider + Encounter Details Date Type Department Care Team (Late st Contact Info) Description 12/03/2015 Orders Only [facility]INCON[facility] Provider, MD Enmanuel [address] [place] [address] Social History Tobacco Use Types Packs/Day Years Used Date Smoking Tobacco: Never Alcohol Use Standard Drinks/Week Comments Yes 0 (1 standard drink = 0.6 oz pur e alcohol) Comments Unknown Sex and Gender Information Value Date Recorded Sex Assigned at Not on file 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
--- OUTSIDE RECORDS SUMMARY | 2025-06-03 10:47 | XMS_ITS | Encounter Summary ---
Author Organization [facility] Address [address] [place] [address] Phone Care Team Providers Care Gizzard Peeler Name Role Phone Ros Gilliam MD Primary Care Provider [phone] Carl Kahn MD Primary Care Provider [phone] Juancho Contreras MD Primary Care Provider [phone] Rashmi Li MD Primary Care Provider + Encounter Details Date Type Department Care Team (Late st Contact Info) Description 11/07/2017 Orders Only [facility] Provider, MD Enmanuel [address] [place] [address] Social History Tobacco Use Types Packs/Day Years Used Date Smoking Tobacco: Never Alcohol Use Standard Drinks/Week Comments Yes 0 (1 standard drink = 0.6 oz pur e alcohol) Comments Unknown Sex and Gender Information Value Date Recorded Sex Assigned at Not on file 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 Gender Identity Female 11/25/2019 12:00 PM [...] on filedocumented in this encounter Care Teams Gizzard Peeler Relationship Specialty Start Date End Date Ros Gilliam MD [address] [place] [address] PCP - General 07/13/17 07/25/22 Carl Kahn MD [address] [place] [address] PCP - General Family Medicine 07/26/22 06/04/24 Juancho Contreras MD [address] [place] [address] PCP - General Family Medicine 06/05/24 09/23/24 Rashmi Li MD [address] [place] [address] [place] [address] PCP - General Family Medicine 09/24/24 documented as of this encounter
--- OUTSIDE RECORDS SUMMARY | 2025-06-03 10:47 | XMS_ITS | Encounter Summary ---
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
--- OUTSIDE RECORDS SUMMARY | 2025-06-03 10:47 | XMS_ITS | Encounter Summary ---
Author Organization [facility] Address [address] [place] [address] Phone Care Team Providers Care Parking Line Painter Name Role Phone Ros Gilliam MD Primary Care Provider [phone] Ros Gilliam MD Primary Care Provider [phone] Unknown, Notinfile Primary Care Provider Unavail able Ros Gilliam MD Primary Care Provider [phone] Unknown, Notinfile Primary Care Provider Unavail able Ros Gilliam MD Primary Care Provider [phone] Carl Kahn MD Primary Care Provider [phone] Juancho Contreras MD Primary Care Provider [phone] Rashmi Li MD Primary Care Provider + Encounter Details Date Type Department Care Team (Late st Contact Info) Description 09/19/2012 Orders Only [facility] CLINCONV Provider, MD Enmanuel [address] [place] [address] Social History Tobacco Use Types Packs/Day Years Used Date Smoking Tobacco: Never Assessed Comments Unknown Sex and Gender Information Value Date Recorded Sex Assigned at Not on file 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 Gender Identity Female 11/25/2019 12:00 PM CDT [...] on filedocumented in this encounter Care Teams Parking Line Painter Relationship Specialty Start Date End Date Ros Gilliam MD [address] [place] [address] PCP - General 10/20/14 01/12/17 Ros Gilliam MD [address] [place] [address] PCP - General 01/13/17 01/13/17 Unknown, Notinfile PCP - General 01/14/17 01/22/17 Ros Gilliam MD [address] [place] [address] PCP - General 01/23/17 03/08/17 Unknown, Notinfile PCP - General 03/09/17 07/12/17 Rso Gilliam MD [address] [place] [address] PCP - General 07/13/17 07/25/22 Carl Kahn MD PCP - General Family Medicine 07/26/22 06/04/24 [place] [address] PCP - General Family Medicine 06/05/24 09/23/24 Rashmi Li MD [address] [place] [address] [address] [place] [address] PCP - General Family Medicine 09/24/24 documented as of this encounter
--- OUTSIDE RECORDS SUMMARY | 2025-06-03 10:47 | XMS_ITS | Encounter Summary ---
Author Organization [facility] Address [address] [place] [address] Phone Care Team Providers Care Director Service Name Role Phone Ros Gilliam MD Primary Care Provider Ros Gilliam MD Primary Care Provider [phone] Unknown, Notinfile Primary Care Provider Unavail able Ros Gilliam MD Primary Care Provider [phone] Unknown, Notinfile Primary Care Provider Unavail able Ros Gilliam MD Primary Care Provider [phone] Carl Kahn MD Primary Care Provider [phone] Juancho Contreras MD Primary Care Provider [phone] Rashmi Li MD Primary Care Provider + Encounter Details Date Type Department Care Team (Late st Contact Info) Description 11/06/2014 Orders Only [facility] Provider, MD En[facility] [address] [place] [id number] Social History Tobacco Use Types Packs/Day Years Used Date Smoking Tobacco: Never Alcohol Use Standard Drinks/Week Comments Yes 0 (1 standard drink = 0.6 oz pur e alcohol) Comments Unknown Sex and Gender Information Value Date Recorded Sex Assigned at Not on file Legal Sex Female 8:26 PM ADMINISTRATOR [facility] Gender Identity Female 11/25/2019 12:00 PM CDT [...] on filedocumented in this encounter Care Teams Director Service Relationship Specialty Start Date End Date Ros Gilliam MD [address] [place] [address] PCP - General 10/20/14 01/12/17 Ros Gilliam MD [address] [place] [address] PCP - General 01/13/17 01/13/17 Unknown, Notinfile PCP - General 01/14/17 01/22/17 Ros Gilliam MD [address] [place] [address] PCP - General 01/23/17 03/08/17 Unknown, Notinfile PCP - General 03/09/17 07/12/17 Ros Gilliam MD [address] [place] [address] PCP - General 07/13/17 07/25/22 Carl Kahn MD PCP - General Family Medicine 07/26/22 06/04/24 [place] [address] PCP - General Family Medicine 06/05/24 09/23/24 Rashmi Li MD [address] [place] [address] [address] [place] [address] PCP - General Family Medicine 09/24/24 documented as of this encounter
--- OUTSIDE RECORDS SUMMARY | 2025-06-03 10:47 | XMS_ITS | Encounter Summary ---
Author Organization [facility] Address [address] [place] [address] Phone Care Team Providers Care Freight Representative Name Role Phone Ros Gilliam MD Primary Care Provider [phone] Carl Kahn MD Primary Care Provider [phone] Juancho Contreras MD Primary Care Provider [phone] Rashmi Li MD Primary Care Provider + Encounter Details Date Type Department Care Team (Late st Contact Info) Description 09/22/2017 Orders Only [facility] Provider, MD Enmanuel [address] [place] [id number] Social History Tobacco Use Types Packs/Day Years Used Date Smoking Tobacco: Never Alcohol Use Standard Drinks/Week Comments Yes 0 (1 standard drink = 0.6 oz pur e alcohol) Comments Unknown Sex and Gender Information Value Date Recorded Sex Assigned at Not on file 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 Gender Identity Female 11/25/2019 12:00 PM CDT [...] on filedocumented in this encounter Care Teams Freight Representative Relationship Specialty Start Date End Date Ros Gilliam MD [address] [place] [address] PCP - General 07/13/17 07/25/22 Carl Kahn MD [address] [place] [address] PCP - General Family Medicine 07/26/22 06/04/24 Juancho Contreras MD [address] [place] [address] PCP - General Family Medicine 06/05/24 09/23/24 Rashmi Li MD [address] [place] [address] [place] [address] PCP - General Family Medicine 09/24/24 documented as of this encounter
== END 2025-06-03 09:45 | disposition home or self-care (01) ==
LOC: ANHAUDIO 09:45
PROVIDERS: PCP Family Medicine; Visit Provider Otolaryngology Otolaryngology/Facial Plastic Surgery
DX: H90.41 Sensorineural hearing loss, unilateral, right ear, with unrestricted hearing on the contralateral side (principal); H93.13 Tinnitus, bilateral; H92.01 Otalgia, right ear
CPT/HCPCS: 92557; 92567